=== PATIENT | female | born 1935 | race Caucasian/White ===

== ENCOUNTER 2018-09-04 11:04 | Inpatient (IN) ==
[2018-09-04] MEDS ORDERED: Isovue-370 500 ML BOTTLE IVP ONE (11:31)
--- NOTE | 2018-09-04 11:39 | Emergency Department Note ---
Disposition Clinical Impression: Supratherapeutic INR Acute renal failure Qualifiers: Acute renal failure type: unspecified Qualified Code(s): N17.9 - Acute kidney failure, unspecified Pneumonia Qualifiers: Pneumonia type: due to unspecified organism Laterality: left Lung location: lower lobe of lung Qualified Code(s): J18.1 - Lobar pneumonia, unspecified organism Disposition: Admitted As Inpatient Time of Disposition: 15:35 General Adult HPI - General Chief complaint: ED Abdominal Pain Stated complaint: ABD PAIN Time Seen by Provider: 09/04/18 11:06 Source: patient, EMS Limitations: other Nursing Notes Reviewed: Yes Vital Signs Reviewed: Yes - History of Present Illness HPI Narrative: Patient is an 82-year-old female with a history of coronary disease, chronic kidney disease stage III, diverticulosis, A. fib, diabetes presents to the ED with left upper quadrant pain. Stated she called the squad yesterday however when they arrive she denied to come with. She called again today because of the same pain. Patient states she has noted this pain for 2 days. Is in her left upper quadrant. It does not hurt at rest. Hurts with palpation. Patient has been nauseous. But she denies any vomiting, diarrhea. Pain is worse with movement and pressure. Better with rest. Has not tried any medications to help this pain. Denies any chest pain, shortness of breath, vision change, weight change. Swelling in her lower extremities. Pain Scale: 0 - Related Data Home Medications Medication Instructions Recorded Confirmed Aspirin [Adult Low Dose Aspirin EC] 81 mg PO HS 08/27/15 08/20/17 Fluticasone Propionate Nasal 50 mcg NS DAILY 08/27/15 08/20/17 [Flonase] Lisinopril [Zestril] 20 mg PO DAILY 08/27/15 08/20/17 Pravastatin Sodium [Pravachol] 40 mg PO HS 08/27/15 08/20/17 Warfarin [Coumadin] 2.5 mg PO 1800 09/17/15 08/20/17 Estrogens, Conjugated [Premarin 1 appl TP 2XW 10/11/15 08/20/17 Cream] Folic Acid 0.4 mg PO DAILY 10/11/15 08/20/17 Tramadol HCl 50 mg PO BID PRN 10/11/15 08/20/17 Metoprolol XL (24 HR) Succ [Toprol 25 mg PO HS 08/11/17 08/20/17 Xl] Previous Rx's Medication Instructions Recorded Furosemide [Lasix] 40 mg PO DAILY #60 tab 09/20/15 OxyCODONE/APAP 5/325 [Percocet 1 each PO Q6HR PRN #14 tablet 08/20/17 5/325 MG] Allergies Allergy/AdvReac Type Severity Reaction Status Date / Time No Known Allergies Allergy Verified 08/20/17 07:11 Constitutional: Reports: as per HPI Eyes: Reports: as per HPI ENT ED: Reports: as per HPI Cardiovascular: Reports: chest pain, palpitations. 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 - General Limitations: other General appearance: alert, in no apparent distress - Head Head exam: atraumatic, normocephalic - Eye Eye exam: Present: normal appearance, PERRL, EOMI - ENT ENT exam: normal exam, normal oropharynx, mucous membranes moist - Chest Chest inspection: Present: normal inspection, symmetric chest wall rise - Respiratory Respiratory exam: Present: normal lung sounds bilaterally - Cardiovascular Cardiovascular exam: Present: normal rhythm, irregular rhythm, normal heart sounds, +S1, +S2. Absent: systolic murmur, diastolic murmur - Abdominal Exam Abdominal exam: Present: soft, tenderness, hyperactive bowel sounds. Absent: distention, guarding, rebound, rigidity Abdominal tenderness: Present: LUQ - Extremities Exam Extremities exam: Present: pedal edema (1 +) - Neurological Exam Neurological exam: Present: alert, oriented X3 - Psychiatric Psychiatric exam: Present: normal affect, normal mood - Skin Skin exam: Present: warm, dry, intact, normal color Course Vital Signs Temperature 98.8 F 09/04/18 11:09 Pulse Rate 96 09/04/18 11:09 Respiratory Rate 22 09/04/18 11:09 Blood Pressure 100/46 09/04/18 11:09 O2 Sat by Pulse Oximetry 94 09/04/18 11:09 Temperature 100.0 F H 09/04/18 17:01 Pulse Rate 83 09/04/18 17:01 Respiratory Rate 16 09/04/18 17:01 Blood Pressure 144/75 09/04/18 17:01 O2 Sat by Pulse Oximetry 92 09/04/18 17:01 Oxygen Delivery Oxygen Delivery Room Air Medical Decision Making - MDM Narrative Medical decision making narrative: Left upper quadrant pain, patient was also hypotensive. Her previous visits today. Labs, EKG, troponin are ordered chest x-ray ordered as well as CT abdomen pelvis with contrast. We reviewed her past charts she has not had any scan of her abdomen. CXR 1. Left base opacity may represent infection or atelectasis. 2. Stable elevation of the right hemidiaphragm. She has supratherapeutic INR. Patient has a UTI with elevated creatinine above 5. Patient follows Dr. Smith for kidney disease. Spoke with family at bedside. They state patient had a fall [address] sc an without IV contrast. CT negative for any acute abnormality. Intial troponin was elevated. 0.05. no chest pain no st segment changes on ECG. will trend. Patient is supratherapeutic INR Dr. Ware accepts - Lab Data Result diagrams: 09/04/18 13:03 09/04/18 13:03 Lab Results 09/04/18 09/04/18 09/04/18 Range/Units 13:03 13:03 13:03 WBC 21.5 H (4.3-11.1) K/mcL RBC 4.32 (3.82-4.97) M/mcL Hgb 11.2 L (11.5-15.4) g/dL Hct 34.4 L (35.3-44.9) % MCV 79.6 L (83.0-100.0) fL MCH 25.9 L (28.0-33.3) pg MCHC 32.6 (31.6-35.5) g/dL RDW 16.0 H (11.5-14.5) % Plt Count 125 L (140-400) K/mcL MPV 12.0 (9.4-12.4) fL Immature Gran % 1.3 (0-4) % Seg Neutrophils % 90.5 % Lymphocytes % 3.2 % Monocytes % 4.9 % Eosinophils % 0.0 % Basophils % 0.1 % Neutrophils # 19.5 H (1.6-8.9) K/mcL Lymphocytes # 0.7 (0.6-4.6) K/mcL Monocytes # 1.1 (0.0-1.3) K/mcL Eosinophils # 0.0 (0.0-0.6) K/mcL Basophils # 0.0 (0.0-0.2) K/mcL PT 56.1 H* (9.4-12.1) Seconds INR 5.0 H* APTT 44.3 H (26.0-36.0) Seconds Sodium 127 L (136-145) mEq/L Potassium 3.5 (3.5-5.1) mEq/L Chloride 90 L (98-107) mEq/L Carbon Dioxide 23 (23-29) mEq/L BUN 66 H (8-23) mg/dL Creatinine 5.01 H (0.60-1.20) mg/dL Est GFR ( Amer) 10 L (> 60) Est GFR (Non-Af Amer) 8 L (> 60) BUN/Creatinine Ratio 13 (6-26) Glucose 182 H (70-105) mg/dL Calculated Osmolality 288 (280-300) Calcium 8.3 L (8.6-10.3) mg/dL Total Bilirubin 0.4 (0.3-1.0) mg/dL Direct Bilirubin 0.1 (0.0-0.2) mg/dL Indirect Bilirubin 0.3 (0.0-1.2) mg/dL AST 20 (13-39) Units/L ALT 15 (7-52) Units/L Alkaline Phosphatase 102 (34-104) Units/L Troponin I 0.05 H* (< 0.04) ng/mL Serum Total Protein 5.8 L (6.4-8.9) g/dL Albumin 2.6 L (3.5-5.7) g/dL Globulin 3.2 (2.4-3.5) g/dL Albumin/Globulin Ratio 0.8 L (1.1-2.2)
[2018-09-04 14:06] LABS: Basophils % 0.1 %; Hematocrit 34.4 % (35.3-44.9); Hemoglobin 11.2 g/dL (11.5-15.4); Immature Granulocytes % 1.3 % (0-4); Lymphocytes # 0.7 K/mcL (0.6-4.6); Lymphocytes % 3.2 %; Mean Corpuscular HGB Conc 32.6 g/dL (31.6-35.5); Mean Corpuscular Hemoglobin 25.9 pg (28.0-33.3); Mean Corpuscular Volume 79.6 fL (83.0-100.0); Monocytes # 1.1 K/mcL (0.0-1.3); Monocytes % 4.9 %; Neutrophils # 19.5 K/mcL (1.6-8.9); Platelet Count 125 K/mcL (140-400); Red Blood Count 4.32 M/mcL (3.82-4.97); Segmented Neutrophils % 90.5 %
[2018-09-04 14:15] LABS: Activated Partial Thrombo Time 44.3 Seconds (26.0-36.0)
[2018-09-04 14:27] LABS: Albumin 2.6 g/dL (3.5-5.7); Albumin/Globulin Ratio 0.8 (1.1-2.2); Bilirubin,Direct 0.1 mg/dL (0.0-0.2); Bilirubin,Indirect 0.3 mg/dL (0.0-1.2); Bilirubin,Total 0.4 mg/dL (0.3-1.0); Calcium 8.3 mg/dL (8.6-10.3); Globulin 3.2 g/dL (2.4-3.5); Potassium 3.5 mEq/L (3.5-5.1); Total Protein 5.8 g/dL (6.4-8.9)
[2018-09-04 14:35] LABS: Prothrombin Time 56.1 Seconds (9.4-12.1)
[2018-09-04 14:41] LABS: Troponin I 0.05 ng/mL (< 0.04)
--- NOTE | 2018-09-04 15:13 | Emergency Department Note ---
Disposition Clinical Impression: Supratherapeutic INR Acute renal failure Qualifiers: Acute renal failure type: unspecified Qualified Code(s): N17.9 - Acute kidney failure, unspecified Disposition: Admitted As Inpatient Forms: ED Satisfaction Letter, Work/School Release General Adult HPI - General Chief complaint: ED Abdominal Pain Stated complaint: ABD PAIN Time Seen by Provider: 09/04/18 11:06 Source: patient, EMS Limitations: other - History of Present Illness Pain Scale: 0 - Related Data Home Medications Medication Instructions Recorded Confirmed Aspirin [Adult Low Dose Aspirin EC] 81 mg PO HS 08/27/15 08/20/17 Fluticasone Propionate Nasal 50 mcg NS DAILY 08/27/15 08/20/17 [Flonase] Lisinopril [Zestril] 20 mg PO DAILY 08/27/15 08/20/17 Pravastatin Sodium [Pravachol] 40 mg PO HS 08/27/15 08/20/17 Warfarin [Coumadin] 2.5 mg PO 1800 09/17/15 08/20/17 Estrogens, Conjugated [Premarin 1 appl TP 2XW 10/11/15 08/20/17 Cream] Folic Acid 0.4 mg PO DAILY 10/11/15 08/20/17 Tramadol HCl 50 mg PO BID PRN 10/11/15 08/20/17 Metoprolol XL (24 HR) Succ [Toprol 25 mg PO HS 08/11/17 08/20/17 Xl] Previous Rx's Medication Instructions Recorded Furosemide [Lasix] 40 mg PO DAILY #60 tab 09/20/15 OxyCODONE/APAP 5/325 [Percocet 1 each PO Q6HR PRN #14 tablet 08/20/17 5/325 MG] Allergies Allergy/AdvReac Type Severity Reaction Status Date / Time No Known Allergies Allergy Verified 08/20/17 07:11 Constitutional: Reports: as per HPI Eyes: Reports: as per HPI ENT ED: Reports: as per HPI Cardiovascular: Reports: chest pain, palpitations. 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 - Social History Smoking Status: Never smoker Smokeless Tobacco Status: No Alcohol use: Reports: none Drug use: Reports: none Physical Exam - General Limitations: other General appearance: alert, in no apparent distress Course Vital Signs Temperature 98.8 F 09/04/18 11:09 Pulse Rate 96 09/04/18 11:09 Respiratory Rate 22 09/04/18 11:09 Blood Pressure 100/46 09/04/18 11:09 O2 Sat by Pulse Oximetry 94 09/04/18 11:09 Temperature 98.8 F 09/04/18 11:09 Pulse Rate 90 09/04/18 12:55 Respiratory Rate 20 09/04/18 12:55 Blood Pressure 109/54 09/04/18 12:55 O2 Sat by Pulse Oximetry 95 09/04/18 12:55 Oxygen Delivery Oxygen Delivery Room Air Medical Decision Making - Lab Data Result diagrams: 09/04/18 13:03 09/04/18 13:03 Lab Results 09/04/18 09/04/18 09/04/18 Range/Units 13:03 13:03 13:03 WBC 21.5 H (4.3-11.1) K/mcL RBC 4.32 (3.82-4.97) M/mcL Hgb 11.2 L (11.5-15.4) g/dL Hct 34.4 L (35.3-44.9) % MCV 79.6 L (83.0-100.0) fL MCH 25.9 L (28.0-33.3) pg MCHC 32.6 (31.6-35.5) g/dL RDW 16.0 H (11.5-14.5) % Plt Count 125 L (140-400) K/mcL MPV 12.0 (9.4-12.4) fL Immature Gran % 1.3 (0-4) % Seg Neutrophils % 90.5 % Lymphocytes % 3.2 % Monocytes % 4.9 % Eosinophils % 0.0 % Basophils % 0.1 % Neutrophils # 19.5 H (1.6-8.9) K/mcL Lymphocytes # 0.7 (0.6-4.6) K/mcL Monocytes # 1.1 (0.0-1.3) K/mcL Eosinophils # 0.0 (0.0-0.6) K/mcL Basophils # 0.0 (0.0-0.2) K/mcL PT 56.1 H* (9.4-12.1) Seconds INR 5.0 H* APTT 44.3 H (26.0-36.0) Seconds Sodium 127 L (136-145) mEq/L Potassium 3.5 (3.5-5.1) mEq/L Chloride 90 L (98-107) mEq/L Carbon Dioxide 23 (23-29) mEq/L BUN 66 H (8-23) mg/dL Creatinine 5.01 H (0.60-1.20) mg/dL Est GFR ( Amer) 10 L (> 60) Est GFR (Non-Af Amer) 8 L (> 60) BUN/Creatinine Ratio 13 (6-26) Glucose 182 H (70-105) mg/dL Calculated Osmolality 288 (280-300) Calcium 8.3 L (8.6-10.3) mg/dL Total Bilirubin 0.4 (0.3-1.0) mg/dL Direct Bilirubin 0.1 (0.0-0.2) mg/dL Indirect Bilirubin 0.3 (0.0-1.2) mg/dL AST 20 (13-39) Units/L ALT 15 (7-52) Units/L Alkaline Phosphatase 102 (34-104) Units/L Troponin I 0.05 H* (< 0.04) ng/mL Serum Total Protein 5.8 L (6.4-8.9) g/dL Albumin 2.6 L (3.5-5.7) g/dL Globulin 3.2 (2.4-3.5) g/dL Albumin/Globulin Ratio 0.8 L (1.1-2.2) Attestation Statement - Attestation Attestation: I examined this patient and my medical decision-making was reviewed with the Resident Physician. I agree with the documented findings, disposition and treatment plan as described except to the extent set forth below. 82 year old female presets to the ED with complaints of left sided lateral rib pain and upper LUQ pain that started over the past few days. Patient had a fall two days ago and and otherwise did not hit her head or neck. Jordyn is on coumadin and it apperars that she is supratherapetic at 5.0 INR and this matches her new renal failure of 5.0 CRN. Jordyn has a CT that is pending but she will be admitted to medicine unless there is consdieration for surgical emergemcy intervention i.e. a spleenic lacaeration or other traumatc pathology which will then require transfer
[2018-09-04] MEDS: Piperacillin/Tazobactam 3.375 GM in 0.9 % Sodium Chloride Mini Bag 100 ML IVPB SCH (16:36)
[2018-09-04] MEDS ORDERED: Naloxone 0.4 MG/ML INJ IVP PRN (18:49)
[2018-09-04] MEDS ORDERED: *HR* OxyCODONE/APAP 5/325 TABLET PO PRN (18:53)
[2018-09-04] MEDS: Aspirin Enteric Coated 81 MG Tablet PO SCH (20:07)
[2018-09-04] MEDS: Metoprolol XL (24 HR) Succ 25 MG TAB.ER.24H PO SCH (20:07)
--- NOTE | 2018-09-04 20:18 | Internal Med History&Physical ---
Date of Encounter: 09/04/18 Time of Encounter: 19:00 Internal Medicine - H&P: HPI Chief complaint: RIGHT UPPER QUADRANT ABDOMINAL PAIN Admitted From: Home Plans for Post Hospital Care: Home History of present illness: The patient is an 82-year-old woman. She has had multiple medical problemsmentioned below. She has had left upper quadrant abdominal pain for a few days. Associated with mild cough but not wheezing. Interestingly, she fell out of bed about 2 days ago. She tells me that the pain in the left upper q uadrant was there before the fall. The pain is very mild, when she is not moving around. It is worse with repositioning of her body and deep breathing. That area is very painful to palpation. Denies any nausea and vomiting. She has normal bowel movements. PAST MEDICAL HX: She has had coronary artery disease and atrial fibrillation. She is treated for congestive heart failure. 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 Her echocardiogram from May 2018 showed the ejection fraction of 45% together with mild concentric left ventricular hypertrophy. It also showed segmental left ventricular wall motion abnormality. She has had type 2 diabetes mellitus and hypertension/hyperlipidemia with stage III chronic kidney disease (GFR of 43 was noted on 07/30/18). She may have some liver diseaseas per her history. PAST FAMILY HX: There is somebody in her close family having breast cancer. Otherwise, she does not remember any other medical problems for her family members. PAST SOCIAL HX: She denies tobacco, alcohol and illicit drug use. REVIEW OF SYSTEMS: All 14 organ systems were reviewed by me with the patient. Positive and pertinent negative findings are listed above. The rest of organ systems is negative. PHYSICAL EXAM: Skin: Free of rash and discoloration. Eyes: Sclera is white. There is no discharge from eyes. ENMT: Oral/pharyngeal mucosa is normal in appearance. There is no discharge from nose or ears. Respiratory: Normal breath sounds with no crackles and wheezes bilaterally. CV: Heart is regular with no gallop or murmur. GI: Abdomen is flat and soft with no palpable mass or visceromegaly. There is tenderness at palpation of the area located below her left ribsanteriorly. : There is no tenderness in patient's flanks bilaterally. Neuro exam: He has good strength in upper and lower extremities. He has normal eye movements. Psychiatric: He has normal affect. His thought process is appropriate to the situation. ADDITIONAL DATA: CBC shows hemoglobin of 11.2 with a WBC of 21.5 thousand and platelet count of 125,000. Sodium is 127 (138 on 07/30/18) with potassium of 3.5. Creatinine is 5.01 with GFR of 8. Those numbers were 1.19 and 43 on 07/30/18. Liver function tests are normal. Chest x-ray shows left base opacitymay represent infection or atelectasis. It shows stable elevation of the right hemidiaphragm. CT of abdomen and pelvis (without IV contrast; with by mouth contrast) does not show any significant abnormalities. A/P: Left upper quadrant abdominal pain. It could represent pleuritic pain in the proximity of her left lower lobe pneumonia. The patient will be treated with IV Zosyn. She is not hypoxic. She does not require supplemental oxygen. Acute kidney injury on the top of CKD stage III. I will give her gentle hydration. I will repeat her BMP in the morning. Hyponatremia. Likely secondary to above mentioned acute kidney injury. I feel, at that it would improve with normal saline IV drip. Her other problems are mentioned above. They seem to be stable/controlled. Past Med Surg Social Fam HX - Past Medical History Medical history: atrial fibrillation, CHF, coronary artery disease, diabetes, GERD, hyperlipidemia, hypertension, liver disease, myocardial infarction Additional medical history: osteoarthritis of knee and hand, colonic polyps, steopenia, chronic kidney disease stagelll, diverticulosis, shingles-12/2007- right lower extremity, hx of shingles, nonischemic CMP, O2 @ 2L Psychiatric history: no psych history - Past Surgical History Surgical History: angioplasty/stent, cholecystectomy Additional surgical history: tubal ligation, upper GI endo and colonoscopy- 10/2009, mammography-09/2010, DEXA-2010, EMB-08/11/12, cardiac cath, - Social History Smoking Status: Former smoker Smokeless Tobacco Status: No Alcohol use: none Drug use: none - Family History Mother Living Status: Hx Family Cardiac Disorders: No Hx Family Respiratory Disorders: No Hx Family Cancer: Yes Father Adopted: No Family Member Ethnicity: Non- Living Status: Sister Family Member Ethnicity: Non- Living Status: Still Living Hx Family Cardiac Disorders: No Hx Family Respiratory Disorders: No Hx Family Cancer: Yes (breast) Internal Medicine - H&P: Meds Aspirin [Adult Low Dose Aspirin EC] 81 mg PO HS 08/27/15 [History] Fluticasone Propionate Nasal [Flonase] 50 mcg NS DAILY 08/27/15 [History] Lisinopril [Zestril] 20 mg PO DAILY 08/27/15 [History] Pravastatin Sodium [Pravachol] 40 mg PO HS 08/27/15 [History] Warfarin [Coumadin] 2.5 mg PO 1800 09/17/15 [History] Furosemide [Lasix] 40 mg PO DAILY #60 tab 09/20/15 [Rx] Estrogens, Conjugated [Premarin Cream] 1 appl TP 2XW 10/11/15 [History] Folic Acid 0.4 mg PO DAILY 10/11/15 [History] Tramadol HCl 50 mg PO BID PRN 10/11/15 [History] Metoprolol XL (24 HR) Succ [Toprol Xl] 25 mg PO HS 08/11/17 [History] OxyCODONE/APAP 5/325 [Percocet 5/325 MG] 1 each PO Q6HR PRN #14 tablet 08/20/17 [Rx] Allergy/AdvReac Type Severity Reaction Status Date / Time No Known Allergies Allergy Verified 08/20/17 07:11 - Constitutional Vitals: Temp Pulse Resp BP Pulse Ox 98.2 F 102 15 109/68 91 09/04/18 18:59 09/04/18 18:59 09/04/18 18:59 09/04/18 18:59 09/04/18 18:59 General appearance: Present: A&O X 3, no acute distress, answers questions appropriately Exam: xx Internal Med - H&P Results - Labs CBC & Chem 7: 09/05/18 03:09 09/05/18 03:09 Labs: Short CBC 09/04/18 Range/Units 13:03 WBC 21.5 H (4.3-11.1) K/mcL Hgb 11.2 L (11.5-15.4) g/dL Hct 34.4 L (35.3-44.9) % Plt Count 125 L (140-400) K/mcL Neutrophils # 19.5 H (1.6-8.9) K/mcL BMP 09/04/18 13:03 Sodium 127 L Potassium 3.5 Chloride 90 L Carbon Dioxide 23 BUN 66 H Creatinine 5.01 H Glucose 182 H Calcium 8.3 L Cardiac Enzymes 09/04/18 09/04/18 Range/Units 13:03 18:17 Troponin I 0.05 H* 0.06 H* (< 0.04) ng/mL Liver Function 09/04/18 Range/Units 13:03 Total Bilirubin 0.4 (0.3-1.0) mg/dL Direct Bilirubin 0.1 (0.0-0.2) mg/dL AST 20 (13-39) Units/L ALT 15 (7-52) Units/L Alkaline Phosphatase 102 (34-104) Units/L Albumin 2.6 L (3.5-5.7) g/dL - Impressions ITS Impressions Chest X-Ray 09/04/18 11:27 IMPRESSION: 1. Left base opacity may represent infection or atelectasis. 2. Stable elevation of the right hemidiaphragm. D/ / 09/04/2018 11:58:14 Nany Thomas MD / larisa Interpreting Provider: Nany Thomas MD Abdomen/Pelvis CT 09/04/18 11:31 IMPRESSION: 1. No acute intra-abdominal abnormality to account for the patient's symptoms. 2. Moderate diverticulosis. 3. Severe atherosclerosis. 4. Status post cholecystectomy. 5. Probable benign cyst in the right adnexa measuring up to 3.7 cm. Given the patient's age, pelvic ultrasound is recommended on a nonemergent basis. 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 insulin use: without termite control service representative use Diabetes mellitus complication status: with kidney complications Diabetes mellitus complication detail: with chronic kidney disease Chronic kidney disease stage: stage 3 (moderate) Qualified Code(s): E11.22 - Type 2 diabetes mellitus with diabetic chronic kidney disease; N18.3 - Chronic kidney disease, stage 3 (m oderate) (4) Hyponatremia Current Visit: Yes Status: Acute - Time Spent With Patient Total time spent is greater than 50% in coordination of care (as documented) at patient's floor/unit and/or counseling patient: - VTE Reasons for not Prescribing Prophylaxis: Treatment not Indicated - Low risk for VTE Deep Vein Thrombosis/Pulmonary Embolism Present on Admission: No
[2018-09-04 21:12] LABS: Bilirubin,Urine Negative (Negative); Blood,Urine Small (Negative); Clarity,Urine Turbid (Clear); Color,Urine Yellow (Yellow); Glucose,Urine (UA) Normal (Normal); Ketones,Urine Negative (Negative); Leukocyte Esterase,Urine Large (Negative); Nitrite,Urine Negative (Negative); Protein,Urine >=300 mg/dL (Neg-Trace); Specific Gravity,Urine 1.011 (1.010-1.025); Urobilinogen,Urine Normal (Normal)
[2018-09-04 21:14] LABS: Bacteria,Urine Few per hpf (None-Few); Hyaline Casts,Urine None Seen per lpf (None-Few); RBC,Urine 15-30 per hpf (0-3); Squamous Epithelial Cell,Urine Many per lpf (None-Few); WBC,Urine TNTC per hpf (0-3)
[2018-09-04] MEDS: 0.9 % Sodium Chloride 1,000 ML IVC SCH (21:55)
[2018-09-05] MEDS: Piperacillin/Tazobactam 3.375 GM in 0.9 % Sodium Chloride Mini Bag 100 ML IVPB SCH ×2 (03:04→16:08)
[2018-09-05 03:58] LABS: Basophils % 0.1 %; Hematocrit 34.8 % (35.3-44.9); Hemoglobin 11.5 g/dL (11.5-15.4); Lymphocytes # 0.6 K/mcL (0.6-4.6); Lymphocytes % 3.3 %; Mean Corpuscular Hemoglobin 25.8 pg (28.0-33.3); Mean Corpuscular Volume 78.2 fL (83.0-100.0); Mean Platelet Volume 12.1 fL (9.4-12.4); Monocytes # 0.8 K/mcL (0.0-1.3); Monocytes % 4.1 %; Neutrophils # 16.6 K/mcL (1.6-8.9); Platelet Count 112 K/mcL (140-400); Red Blood Count 4.45 M/mcL (3.82-4.97); Segmented Neutrophils % 91.5 %
[2018-09-05 04:19] LABS: Magnesium 1.5 mg/dL (1.6-2.6); Potassium 3.5 mEq/L (3.5-5.1)
[2018-09-05] MEDS ORDERED: Furosemide 20 MG TABLET PO SCH (09:00)
[2018-09-05] MEDS ORDERED: traMADol 50 MG TABLET PO PRN (11:38)
[2018-09-05 13:16] LABS: INR 4.7; Prothrombin Time 53.4 Seconds (9.4-12.1)
--- NOTE | 2018-09-05 13:26 | Internal Med Progress Note ---
<Mayi Grier P - Last Filed: 09/05/18 15:39> Hospitalist Progress Note - Encounter Date of Encounter: 09/05/18 Time of Encounter: 09:45 - Subjective Interval History: The patient is an 82-year-old woman with PMH of type 2 diabetes mellitus and hypertension/hyperlipidemia with stage III chronic kidney disease (GFR of 43 was noted on 07/30/18.She has had left upper quadrant abdominal pain for a few days. Associated with mild cough but not wheezing. Interestingly, she fell out of bed about 2 days ago. She tells me that the pain in the left upper quadrant was there before the fall.Her echocardiogram from May 2018 showed the ejection fraction of 45% together with mild concentric left ventricular hypertrophy. It also showed segmental left ventricular wall motion abnormality. CXR: Left base opacity may represent infection or atelectasis. CT abdomen & pelvis:No acute intra-abdominal abnormality to account for the patient's symptoms.,Moderate diverticulosis,Severe atherosclerosis. ,Status post cholecystectomy. Today during my visit the patient was lying comfortably on the bed, her vitals were stable. She complained about mild to moderate pain abdomen in left upper quadrant and left lower chest, she was not in acute distress, answering question appropriately. - Exam Vitals: Temp Pulse Resp BP Pulse Ox 98.6 F 93 16 115/67 93 09/05/18 11:07 09/05/18 11:07 09/05/18 11:07 09/05/18 11:07 09/05/18 11:07 Exam: Gen: Alert, awake , Oriented to time,place and person Chest: Diminished BS b/l, No crackles, No rales, No wheezing Heart: S1S2+ RRR No Murmurs Abd: Soft, NT, BS + No organomegaly Ext: No edema, pulses are palpable, no tenderness Neuro: No focal neuro deficits Psych: Normal mood Skin: No rash - Assessment and Plan (1) Pneumonia Current Visit: Yes Status: Acute Assessment and Plan: The patient presented with left upper quadrant pain with cough and mild shortness of breath, she is a past smoker Xray Chest: Left base opacity may represent infection or atelectasis. She is on Zosyn (2) Atrial fibrillation Current Visit: No Status: Acute Assessment and Plan: She is a patient with chronic A. fib, she was on oral Coumadin We have put hold on warfarin due to elevated INR and PT (3) Acute kidney injury superimposed on CKD Current Visit: Yes Status: Acute Assessment and Plan: The patient has elevated BUN creatinine for last few years Today the creatinine level is 4.33 and yesterday it was 5.01 It might be presipitated by dehydration or infection We have put hold on nephrotoxic drugs and consulted nephrology. (4) Diabetes type 2, controlled Current Visit: No Status: Chronic Assessment and Plan: She is a chronic patient of type 2 diabetes Recent glucose 139 Her A1c 6.7; done in March 2018 New A1c has been ordered (5) Hypertension Current Visit: No Status: Acute Assessment and Plan: The patient is chronic patient of hypertension she is on metoprolol 25 mg daily His vital; blood pressure 115/67 (6) Supratherapeutic INR Current Visit: Yes Status: Acute Assessment and Plan: Patient was on warfarin for chronic A. fib The patient has elevated PT and INR; 56.1 and 5.0 respectively yesterday, today 53.4 and 4.7 respiratory We have put hold on warfarin and we will monitor tomorrow as well - Time Spent with Patient Total time spent is greater than 50% in coordination of care (as documented) at patient's floor/unit and/or counseling patient: Internal Medicine: Result - Labs CBC & Chem 7: 09/05/18 03:09 09/05/18 03:09 Labs: Short CBC 09/04/18 09/05/18 Range/Units 13:03 03:09 WBC 21.5 H 18.2 H (4.3-11.1) K/mcL Hgb 11.2 L 11.5 (11.5-15.4) g/dL Hct 34.4 L 34.8 L (35.3-44.9) % Plt Count 125 L 112 L (140-400) K/mcL Neutrophils # 19.5 H 16.6 H (1.6-8.9) K/mcL BMP 09/04/18 09/05/18 13:03 03:09 Sodium 127 L 127 L Potassium 3.5 3.5 Chloride 90 L 90 L Carbon Dioxide 23 24 BUN 66 H 69 H Creatinine 5.01 H 4.33 H Glucose 182 H 139 H Calcium 8.3 L 8.0 L Cardiac Enzymes 09/04/18 09/04/18 Range/Units 13:03 18:17 Troponin I 0.05 H* 0.06 H* (< 0.04) ng/mL Liver Function 09/04/18 Range/Units 13:03 Total Bilirubin 0.4 (0.3-1.0) mg/dL Direct Bilirubin 0.1 (0.0-0.2) mg/dL AST 20 (13-39) Units/L ALT 15 (7-52) Units/L Alkaline Phosphatase 102 (34-104) Units/L Albumin 2.6 L (3.5-5.7) g/dL Urine 09/04/18 Range/Units 20:50 Urine Color Yellow (Yellow) Urine Clarity Turbid A (Clear) Urine pH 6.0 (5.0-8.0) pH Units Ur Specific [place] 1.011 (1.010-1.025) Urine Protein >=300 H (Neg-Trace) mg/dL Urine Glucose (UA) Normal (Normal) mg/dL - ABG Interpretation ABG results: PT/INR, D-dimer PT 53.4 Seconds (9.4-12.1) H* 09/05/18 11:49 - Impressions Impressions Chest X-Ray 09/04/18 11:27 IMPRESSION: 1. Left base opacity may represent infection or atelectasis. 2. Stable elevation of the right hemidiaphragm. D/ / 09/04/2018 11:58:14 Nany Thomas MD / larisa Interpreting Provider: Nany Thomas MD Abdomen/Pelvis CT 09/04/18 11:31 IMPRESSION: 1. No acute intra-abdominal abnormality to account for the patient's symptoms. 2. Moderate diverticulosis. 3. Severe atherosclerosis. 4. Status post cholecystectomy. 5. Probable benign cyst in the right adnexa measuring up to 3.7 cm. Given the patient's age, pelvic ultrasound is recommended on a nonemergent basis. D/ / 09/04/2018 15:16:45 Nany Thomas MD / larisa Interpreting Provider: Nany Thomas MD - VTE Reasons for not Prescribing Prophylaxis: Treatment not Indicated - Low risk for VTE Deep Vein Thrombosis/Pulmonary Embolism Present on Admission: No Consult Discharge Plan - Plan Referrals: Abebe Chirinos MD [Primary Care Provider] - <Jyoti Welsh - Last Filed: 09/05/18 16:04> Hospitalist Progress Note - Encounter Date of Encounter: 09/05/18 - Exam Vitals: Temp Pulse Resp BP Pulse Ox 98.6 F 93 16 115/67 93 09/05/18 11:07 09/05/18 11:07 09/05/18 11:07 09/05/18 11:07 09/05/18 11:07 - Assessment and Plan (1) Acute renal failure Current Visit: Yes Status: Acute (2) Pneumonia Current Visit: Yes Status: Acute (3) Type 2 diabetes mellitus Current Visit: Yes Status: Acute (4) Hyponatremia Current Visit: Yes Status: Acute - Time Spent with Patient Total time spent is greater than 50% in coordination of care (as documented) at patient's floor/unit and/or counseling patient: Internal Medicine: Result - Labs CBC & Chem 7: 09/05/18 03:09 09/05/18 03:09 Labs: Short CBC 09/05/18 Range/Units 03:09 WBC 18.2 H (4.3-11.1) K/mcL Hgb 11.5 (11.5-15.4) g/dL Hct 34.8 L (35.3-44.9) % Plt Count 112 L (140-400) K/mcL Neutrophils # 16.6 H (1.6-8.9) K/mcL BMP 09/05/18 03:09 Sodium 127 L Potassium 3.5 Chloride 90 L Carbon Dioxide 24 BUN 69 H Creatinine 4.33 H Glucose 139 H Calcium 8.0 L Cardiac Enzymes 09/04/18 Range/Units 18:17 Troponin I 0.06 H* (< 0.04) ng/mL Urine 09/04/18 Range/Units 20:50 Urine Color Yellow (Yellow) Urine Clarity Turbid A (Clear) Urine pH 6.0 (5.0-8.0) pH Units Ur Specific [place] 1.011 (1.010-1.025) Urine Protein >=300 H (Neg-Trace) mg/dL Urine Glucose (UA) Normal (Normal) mg/dL - ABG Interpretation ABG results: PT/INR, D-dimer PT 53.4 Seconds (9.4-12.1) H* 09/05/18 11:49 - Attending Attestation I examined this patient and my medical decision-making was reviewed with the Res ident Physician Dr. Grier. I agree with the documented findings, disposition and treatment plan as described except to the extent set forth below. Ms. Marques is a 82 y/o F with known past medical history of paroxysmal a fib, CK D stage III, hypertension, hyperlipidemia, systolic CHF, diabetes type II, patient who presented to ER with cough and shortness of breath. She also complained about left lower chest wall as was epigastric pain more like a pleurisy pain. Her chest x-ray showed left lower lobe pneumonia. Patient was admitted in the hospital and started her on empirical antibiotic levofloxacin symptoms started improving now. She is still f/o Left lower chest wall pain. Gen: A, A, O x3 Chest: Diminished BS b/l, no crackles, no rales, mild wheezing Heart: S1S2+ RRR No murmurs ap 1. Acute LLL PNA- mostly bacterial cont empirical abx Zosyn cont Duoneb 2. J CARLOS with CKD-3 Due to dehydration cont IV hydration Nephro consulted 3. Chronic systolic CHF not in exacerbation held diuretics due to dehydration resumed all other home medications <Mayi Grier P - Last Filed: 09/05/18 15:39> (2) Atrial fibrillation Qualifiers: Atrial fibrillation type: chronic Qualified Code(s): I48.2 - Chronic atrial fibrillation (5) Hypertension Qualifiers: Hypertension type: essential hypertension Qualified Code(s): I10 - Essential (primary) hypertension <Jyoti Welsh - Last Filed: 09/05/18 16:04> (1) Acute renal failure Qualifiers: Acute renal failure type: unspecified Qualified Code(s): N17.9 - Acute kidney failure, unspecified (2) Pneumonia Qualifiers: Pneumonia type: due to unspecified organism Laterality: left Lung location: lower lobe of lung Qualified Code(s): J18.1 - Lobar pneumonia, unspecified organism (3) Type 2 diabetes mellitus Qualifiers: Diabetes mellitus intermediate frame tender insulin use: without intermediate frame tender use Diabetes mellitus complication status: with kidney complications Diabetes mellitus complication detail: with chronic kidney disease Chronic kidney disease stage: stage 3 (moderate) Qualified Code(s): E11.22 - Type 2 diabetes mellitus with diabetic chronic kidney disease; N18.3 - Chronic kidney disease, stage 3 (moderate)
[2018-09-05] MEDS: Estrogens, Conjugated CREAM 30 GM TUBE VG SCH (13:35)
[2018-09-05] MEDS: 0.9 % Sodium Chloride 1,000 ML IVC SCH (13:39)
--- NOTE | 2018-09-05 13:56 | Nephrology Consult Note ---
Addendum entered and electronically signed by James Grimm DO 09/06/18 07:40: I have personally performed a face to face evaluation on this patient. I have reviewed and agree with the care plan. History and Exam by me shows: 82 y/o WF with a pmh of CKD (followed by Dr. Smith in the clinic) who presented with J CAROLS and hyponatremia. Work up ordered. 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 She has required E/M and MDM and is high risk and will require admission and daily assessment of her renal function, plus I recommend a slow/safe reate of correction for the hyponatremia of about 6-8mEq in the 1st 24hr. Thank you for consulting the [facility]. Original Note: Date of Encounter: 09/05/18 Time of Encounter: 13:56 Assessment and Plan (1) Acute kidney injury superimposed on CKD Current Visit: Yes Status: Acute Baseline GFR appears to be 35-40. Avoid nephrotoxins and renal dose all medications. Strict I&O. GFR today is 10, no signs of uremia or confusion. Electrolytes stable. No indication for [employer] STOCKYARD today, this could change due to clinical picture. Urine output for the past 24 hours has been 400 mL, 600 mL already for today. Retroperitoneal ultrasound ordered, serum and urine studies ordered. (2) Hyponatremia Current Visit: Yes Status: Acute Sodium is 127, stable we will continue to monitor. Hyponatremia workup ordered. (3) Supratherapeutic INR Current Visit: Yes Status: Acute PT 53.4 and INR 4.7. Per primary. (4) Type 2 diabetes mellitus Current Visit: Yes Status: Acute Per primary. Qualifiers: Diabetes mellitus shelter insulin use: without remote computer terminal operator use Diabetes mellitus complication status: with kidney complications Diabetes mellitus complication detail: with chronic kidney disease Chronic kidney disease stage: stage 3 (moderate) Qualified Code(s): E11.22 - Type 2 diabetes mellitus with diabetic chronic kidney disease; N18.3 - Chronic kidney disease, stage 3 (moderate) History of Present Illness - Reason for Consult Consult date: 09/05/18 Chronic Kidney Disease Requesting physician: Mayi Grier - Chief Complaint left upper quad pain - History of Present Illness Ms. Marques is an 82 year old female who resented to the ED with abdominal pain and status post fall from bed. PMH:atrial fibrillation, CHF, coronary artery di sease, diabetes, GERD, hyperlipidemia, hypertension, and CKD 4. Baseline GFR appears to be 35-40. She does see Dr. Smith in the office. CT of the abdomen and pelvis without contrast was obtained on 09/04/18. GFR is 10 today worsened from her baseline. Avoid nephrotoxins and renal dose all medications. Strict I&O. Patient does report nausea and emesis at home approximately 3 days prior to arrival to the ED. She also reports that she does not drink much water at home. She denies diarrhea. Denies chest pain or shortness of breath at this time. J CARLOS workup has been ordered including a retroperitoneal ultrasound. Past Med Surg Social Fam HX - Past Medical History Medical history: atrial fibrillation, CHF, coronary artery disease, diabetes, GERD, hyperlipidemia, hypertension, liver disease, myocardial infarction Additional medical history: osteoarthritis of knee and hand, colonic polyps, steopenia, chronic kidney disease stagelll, diverticulosis, shingles-12/2007- right lower extremity, hx of shingles, nonischemic CMP, O2 @ 2L Psychiatric history: no psych history - Past Surgical History Surgical History: angioplasty/stent, cholecystectomy Additional surgical history: tubal ligation, upper GI endo and colonoscopy- 10/2009, mammography-09/2010, DEXA-2010, EMB-08/11/12, cardiac cath, - Social History Smoking Status: Former smoker Smokeless Tobacco Status: No Alcohol use: none Drug use: none - Family History Father Adopted: No Family Member Ethnicity: Non- Living Status: Mother Living Status: Hx Family Cardiac Disorders: No Hx Family Respiratory Disorders: No Hx Family Cancer: Yes Sister Family Member Ethnicity: Non- Living Status: Still Living Hx Family Cardiac Disorders: No Hx Family Respiratory Disorders: No Hx Family Cancer: Yes (breast) Medications and Allergies RX: Fluticasone Propionate Nasal [Flonase] 1 spray NS DAILY 08/27/15 [History] RX: Pravastatin Sodium [Pravachol] 40 mg PO DAILY 08/27/15 [History] RX: Warfarin [Coumadin] 2.5 mg PO [id number] 09/17/15 [History] RX: Furosemide [Lasix] 40 mg PO DAILY #60 tab 09/20/15 [Rx] RX: Folic Acid 0.4 mg PO DAILY 10/11/15 [History] Aspirin Enteric Coated [Aspirin EC] 81 mg PO DAILY 09/05/18 [History] Cholecalciferol (D-3) [Vitamin D] 1,000 unit PO DAILY 09/05/18 [History] Losartan Potassium 100 mg PO DAILY 09/05/18 [History] RX: Estrogens, Conjugated [Premarin Cream] 1 appl VG AD 09/05/18 [History] RX: Omeprazole [PriLOSEC] 40 mg PO DAILY 09/05/18 [History] Tramadol HCl [Ultram] 50 mg PO DAILY PRN 09/05/18 [History] Warfarin Sodium 5 mg PO ESTEBAN 09/05/18 [History] Allergy/AdvReac Type Severity Reaction Status Date / Time No Known Allergies Allergy Verified 08/20/17 07:11 Review of Systems All Systems review (narrative): The remainder of the systems are negative. Constitutional: fatigue, no chills, no fever(s) Cardiovascular: no chest pain, no dyspnea, no dyspnea on exertion Respiratory: no cough Gastrointestinal: nausea, vomiting, no change in bowel habits, no diarrhea Genitourinary Female: no hematuria, no urinary frequency, no urinary hesitancy, no urinary incontinence, no urinary urgency Exam - Vital Signs Vital signs: Initial Vital Signs Temp Pulse Resp BP Pulse Ox 98.8 F 96 22 100/46 94 09/04/18 11:09 09/04/18 11:09 09/04/18 11:09 09/04/18 11:09 09/04/18 11:09 Vital Signs - Last 8 Hours Temp Pulse Resp BP Pulse Ox 09/05/18 11:07 98.6 F 93 16 115/67 93 09/05/18 07:21 99.4 F 107 16 107/49 92 Intake and Output 09/04/18 09/05/18 09/05/18 23:59 07:59 15:59 Intake Total 100 / 100 1000 / 1000 Output Total 400 / 400 600 / 600 Balance -300 / -300 -600 / -600 1000 / 1000 Intake: IV Fluids 100 / 100 1000 / 1000 0.9 % Sodium Chloride 1,000 ML 1000 / 1000 @ 75 mls/hr IVC .[id number] [facility] Rx #:[id number] Zosyn 3.375 GM In 0.9 % Sodium 100 / 100 Chloride (Mini-Bag +) 100 ML @ 25 mls/hr IVPB Q12H [facility] Rx#: [id number] Output: Urine 400 / 400 600 / 600 Other: Stool Size Small Stool Consistency loose Stool Color Brown # Voids 1 # Bowel Movements 1 Weight 84.3 kg Patient Weight 09/05/18 23:59 Weight 84.3 kg - General Appearance General appearance: well-developed, well-nourished EENT: ATNC, hearing intact, vision intact Neck: supple Respiratory: clear Cardiology: no edema, normal S1, normal S2 Gastrointestinal: normoactive bowel sounds, no tenderness, no guarding Integumentary: no rash, warm and dry Neurologic: alert and oriented x3 Musculoskeletal: no deformities, no erythema Psychiatric: mood/affect appropriate, cooperative Results - Lab Results 09/05/18 03:09 09/05/18 03:09 Most recent lab results Calcium 8.0 mg/dL (8.6-10.3) L 09/05/18 03:09 Magnesium 1.5 mg/dL (1.6-2.6) L 09/05/18 03:09 Consult Discharge Plan - Plan Referrals: Abebe Chirinos MD [Primary Care Provider] -
[2018-09-05] MEDS ORDERED: Ipratropium/Albuterol Neb 3 ML IH PRN (16:03)
[2018-09-05 17:34] LABS: Protein/Creatinine Ratio,Urine 2.44 mg/mg (0.00-0.20); Sodium, Urine 26.4 mEq/L
[2018-09-05] MEDS: Aspirin Enteric Coated 81 MG Tablet PO SCH (20:13)
[2018-09-05] MEDS: Metoprolol XL (24 HR) Succ 25 MG TAB.ER.24H PO SCH (20:13)
[2018-09-06] MEDS: Piperacillin/Tazobactam 3.375 GM in 0.9 % Sodium Chloride Mini Bag 100 ML IVPB SCH ×2 (03:40→16:26)
[2018-09-06 05:04] LABS: Basophils # 0.1 K/mcL (0.0-0.2); Basophils % 0.3 %; Hematocrit 33.7 % (35.3-44.9); Lymphocytes % 5.4 %; Mean Corpuscular HGB Conc 32.6 g/dL (31.6-35.5); Mean Corpuscular Hemoglobin 25.9 pg (28.0-33.3); Mean Corpuscular Volume 79.3 fL (83.0-100.0); Monocytes # 0.9 K/mcL (0.0-1.3); Neutrophils # 16.1 K/mcL (1.6-8.9); Platelet Count 128 K/mcL (140-400); Red Blood Count 4.25 M/mcL (3.82-4.97); Red Cell Distribution Width 16.1 % (11.5-14.5); Segmented Neutrophils % 87.3 %
[2018-09-06 05:19] LABS: INR 3.1; Prothrombin Time 34.5 Seconds (9.4-12.1)
[2018-09-06 05:29] LABS: Calcium 8.8 mg/dL (8.6-10.3); Potassium 3.4 mEq/L (3.5-5.1)
[2018-09-06 05:31] LABS: Uric Acid 7.8 mg/dL (2.3-7.6)
[2018-09-06 05:43] LABS: Thyroid Stimulating Hormone 1.341 mcIU/mL (0.340-5.600)
[2018-09-06 06:02] LABS: Estimated Average Glucose 160 mg/dl; Hemoglobin A1C 7.2 %
[2018-09-06] MEDS: Aspirin Enteric Coated 81 MG Tablet PO SCH ×2 (08:56→20:05)
[2018-09-06] MEDS: Cholecalciferol (D-3) 1,000 UNIT TABLET PO SCH (08:56)
[2018-09-06] MEDS: Folic Acid 1 MG TABLET PO SCH (08:56)
[2018-09-06] MEDS ORDERED: Fluticasone Propionate Nasal 50 MCG/SPRAY BOTTLE NS SCH (09:00)
--- NOTE | 2018-09-06 10:22 | Internal Med Progress Note ---
<Mayi Grier P - Last Filed: 09/06/18 13:40> Hospitalist Progress Note - Encounter Date of Encounter: 09/06/18 Time of Encounter: 09:45 - Subjective Interval History: The patient is an 82-year-old woman with PMH of type 2 diabetes mellitus and hypertension/hyperlipidemia with stage III chronic kidney disease (GFR of 43 was noted on 07/30/18.She has had left upper quadrant abdominal pain for a few days, associated with mild cough but not wheezing. She fell out of bed about 2 days ago. She stated that the pain in the left upper quadrant was there before the fall.Her echocardiogram from May 2018 showed the ejection fraction of 45% together with mild concentric left ventricular hypertrophy and mild diastolic dysfunction . It also showed segmental left ventricular wall motion abnormality. CXR: Left base opacity may represent infection or atelectasis at LLL. CT abdomen & pelvis:No acute intra-abdominal abnormality to account for the patient's symptoms.,Moderate diverticulosis,Severe atherosclerosis. ,Status post cholecystectomy. Today during my visit the patient was lying comfortably on the bed, her vitals were stable. She complained about minimal pain abdomen in left upper quadrant and left lower chest, she was not in acute distress, answering question appropriately. Vital signs stable, she is not febrile for 48 hours. She stated that she is improving gradually since admission. We will closely monitor her today and we plan to send her home tomorrow if everything is stable - Exam Vitals: Temp Pulse Resp BP Pulse Ox 97.9 F 72 18 145/74 90 09/06/18 07:21 09/06/18 07:21 09/06/18 07:21 09/06/18 07:21 09/06/18 07:21 Exam: Gen: Alert, awake , Oriented to time,place and person Chest: Diminished BS b/l, No crackles, No rales, No wheezing Heart: S1S2+ RRR No Murmurs Abd: Soft, NT, BS + No organomegaly Ext: No edema, pulses are palpable, no tenderness Neuro: No focal neuro deficits Psych: Normal mood Skin: No rash - Assessment and Plan (1) Pneumonia Current Visit: Yes Status: Acute Assessment and Plan: The patient presented with left upper quadrant pain with cough and mild shortness of breath, she is a past smoker She has elevated white cell count 18.5 and neutrophil 16.1 , trending down since admission it might be due to infection and/or use of a steroid Xray Chest: Left base opacity may represent infection or atelectasis, possibly bacterial pneumonia ( Left Lower lobe ) She is on Zosynx day 2 and nebulization for SOB (2) Acute kidney injury superimposed on CKD Current Visit: Yes Status: Acute Assessment and Plan: The patient has elevated BUN creatinine for last few years, she is a patient of chronic disease(CKD 4) Today the creatinine level is 3.43 and yesterday it was 4.33, K+ 3.4, BUN 66 It might be precipitated by dehydration /or due to infection USG kidney : normal size We have put hold on nephrotoxic drugs and consulted nephrology. No active intervention from nephrology side, we will closely monitor BUN, creatinine and potassium tomorrow. (3) Diabetes type 2, controlled Current Visit: No Status: Chronic Assessment and Plan: She is a chronic patient of type 2 diabetes Recent glucose 126 Her A1c 6.7; done in March 2018 New A1c today 7.2 (4) Atrial fibrillation Current Visit: No Status: Acute Assessment and Plan: The patient is chronic patient of active fibrillation, she was taking warfarin at home Rate controlled with beta criss, We put hold warfarin because of high PT/INR ,Now PT/INR has been normalized We will restart from low dose of warfarin with consultation to pharmacist CHADvas score :5 (5) CHF (congestive heart failure) Current Visit: Yes Status: Acute Assessment and Plan: The patient has shortness of breath with minimal pedal edema Echocardiogram done before showed ejection fraction 45% with left ventricular concentric hypertrophy with mild diastolic dysfunction She is not on acute exacerbation of heart failure (6) Supratherapeutic INR Current Visit: Yes Status: Acute Assessment and Plan: She was on oral warfarin We have put it on hold because of high PT/INR The PT and INR coming down to 34.5 and 3.1 repectively today We consulted for starting from low dose of warfarin and adjust the dose as per PT/INR report tomorrow. (7) Hypertension Current Visit: No Status: Acute Assessment and Plan: She is a patient of chronic essential hypertension We have resumed home medication BB , but holded Lasix and ARB due to high creatinine Her recent blood pressure 145/74 - Time Spent with Patient Total time spent is greater than 50% in coordination of care (as documented) at patient's floor/unit and/or counseling patient: Internal Medicine: Result - Labs CBC & Chem 7: 09/06/18 03:28 09/06/18 03:28 Labs: Short CBC 09/06/18 Range/Units 03:28 WBC 18.5 H (4.3-11.1) K/mcL Hgb 11.0 L (11.5-15.4) g/dL Hct 33.7 L (35.3-44.9) % Plt Count 128 L (140-400) K/mcL Neutrophils # 16.1 H (1.6-8.9) K/mcL BMP 09/06/18 03:28 Sodium 130 L Potassium 3.4 L Chloride 93 L Carbon Dioxide 26 BUN 66 H Creatinine 3.43 H Glucose 126 H Calcium 8.8 - ABG Interpretation ABG results: PT/INR, D-dimer PT 34.5 Seconds (9.4-12.1) H 09/06/18 03:28 - Impressions Impressions Retroperitoneum Ultrasound 09/05/18 18:00 IMPRESSION: Unremarkable ultrasound of the kidneys and urinary bladder. 3.7 cm right ovarian simple cyst correlates with recent CT abdomen pelvis findings. Recommend follow-up pelvic US annually. (Reference: US BPRs based on Radiology 2010 Sep;256(3):943-54; CT/MR BPRs based on J Am Ines Radiol 2013;10:675-681.) D/ / Jeronimo Lyn / Jeronimo Lyn Interpreting Provider: Jeronimo Lyn - VTE Reasons for not Prescribing Prophylaxis: Treatment not Indicated - Low risk for VTE Deep Vein Thrombosis/Pulmonary Embolism Present on Admission: No Consult Discharge Plan - Plan Referrals: Abebe Chirinos MD [Primary Care Provider] - 09/13/18 10:00 am () Linda Galeano MD [Partnered Physician] - 10/17/18 3:30 pm <Jyoti Welsh - Last Filed: 09/06/18 13:56> Hospitalist Progress Note - Encounter Date of Encounter: 09/06/18 - Exam Vitals: Temp Pulse Resp BP Pulse Ox 97.9 F 75 18 158/83 92 09/06/18 12:20 09/06/18 12:20 09/06/18 12:20 09/06/18 12:20 09/06/18 12:20 - Assessment and Plan (1) Acute renal failure Current Visit: Yes Status: Acute (2) Pneumonia Current Visit: Yes Status: Acute (3) Type 2 diabetes mellitus Current Visit: Yes Status: Acute (4) Hyponatremia Current Visit: Yes Status: Acute - Time Spent with Patient Total time spent is greater than 50% in coordination of care (as documented) at patient's floor/unit and/or counseling patient: Internal Medicine: Result - Labs CBC & Chem 7: 09/06/18 03:28 09/06/18 03:28 Labs: Short CBC 09/06/18 Range/Units 03:28 WBC 18.5 H (4.3-11.1) K/mcL Hgb 11.0 L (11.5-15.4) g/dL Hct 33.7 L (35.3-44.9) % Plt Count 128 L (140-400) K/mcL Neutrophils # 16.1 H (1.6-8.9) K/mcL BMP 09/06/18 03:28 Sodium 130 L Potassium 3.4 L Chloride 93 L Carbon Dioxide 26 BUN 66 H Creatinine 3.43 H Glucose 126 H Calcium 8.8 - ABG Interpretation ABG results: PT/INR, D-dimer PT 34.5 Seconds (9.4-12.1) H 09/06/18 03:28 - Impressions Impressions Retroperitoneum Ultrasound 09/05/18 18:00 IMPRESSION: Unremarkable ultrasound of the kidneys and urinary bladder. 3.7 cm right ovarian simple cyst correlates with recent CT abdomen pelvis findings. Recommend follow-up pelvic US annually. (Reference: US BPRs based on Radiology 2010 Apr;256(3):943-54; CT/MR BPRs based on J Am Ines Radiol 2013;10:675-681.) D/ / Jeronimo Lyn / Jeronimo Lyn Interpreting Provider: Jeronimo Lyn - Attending Attestation I examined this patient and my medical decision-making was reviewed with the Resident Physician Dr. Grier. I agree with the documented findings, disposition and treatment plan as described except to the extent set forth below. Ms. Marques is a 82 y/o F with known past medical history of paroxysmal a fib, CK D stage III, hypertension, hyperlipidemia, systolic CHF, diabetes type II, patient who presented to ER with cough and shortness of breath. She also complained about left lower chest wall as was epigastric pain more like a pleurisy pain. Her chest x-ray showed left lower lobe pneumonia. Patient was admitted in the hospital and started her on empirical antibiotic levofloxacin symptoms started improving now. She denied any more chest pain. Gen: A, A, O x3 Chest: Diminished BS b/l, no crackles, no rales, mild wheezing Heart: S1S2+ RRR No murmurs ap 1. Acute LLL PNA- mostly bacterial cont empirical abx Zosyn cont Duoneb 2. J CARLOS with CKD-3 Due to dehydration improving cont IV hydration Nephro consulted 3. Chronic systolic CHF not in exacerbation held diuretics due to dehydration resumed all other home medications <Mayi Grier P - Last Filed: 09/06/18 13:40> (4) Atrial fibrillation Qualifiers: Atrial fibrillation type: chronic Qualified Code(s): I48.2 - Chronic atrial fibrillation (7) Hypertension Qualifiers: Hypertension type: essential hypertension Qualified Code(s): I10 - Essential (primary) hypertension <Jyoti Welsh - Last Filed: 09/06/18 13:56> (1) Acute renal failure Qualifiers: Acute renal failure type: unspecified Qualified Code(s): N17.9 - Acute kidney failure, unspecified (2) Pneumonia Qualifiers: Pneumonia type: due to unspecified organism Laterality: left Lung location: lower lobe of lung Qualified Code(s): J18.1 - Lobar pneumonia, unspecified organism (3) Type 2 diabetes mellitus Qualifiers: 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
[2018-09-06] MEDS: 0.9 % Sodium Chloride 1,000 ML IVC SCH (11:55)
[2018-09-06] MEDS: Estrogens, Conjugated CREAM 30 GM TUBE VG SCH (11:56)
--- NOTE | 2018-09-06 13:25 | Nephrology Progress Note ---
Addendum entered and electronically signed by James Grimm DO 09/07/18 18:59: I have personally performed a face to face evaluation on this patient. I have reviewed and agree with the care plan. History and Exam by me shows: Her J CARLOS and hyponatremia have demonstrated improvement, but she remains complex and high risk and has required a high degree of E/M and MDM. I do not recommend HD today. Continue to follow a renal protective strategy as outlined below. Thank you. Original Note: Date of Encounter: 09/06/18 Time of Encounter: 13:22 - Assessment and Plan (1) Acute kidney injury superimposed on CKD Current Visit: Yes Status: Acute Baseline GFR appears to be 35-40. Avoid nephrotoxins and renal dose all medications. Strict I&O. 1 Liter NS ordered by primary team. GFR today is 13, no signs of uremia or confusion. Electrolytes stable. 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 Urine output for the past 24 hours has been 800 mL. Retroperitoneal ultrasound: Unremarkable ultrasound of the kidneys and urinary bladder. 3.7 cm right ovarian simple cyst correlates with recent CT abdomen pelvis findings. Recommend follow-up pelvic US annually. (2) Hyponatremia Current Visit: Yes Status: Acute Sodium is 130, stable we will continue to monitor. Hyponatremia workup unremarkable. (3) Supratherapeutic INR Current Visit: Yes Status: Acute PT 34.5 and INR 3.1. Per primary. (4) Type 2 diabetes mellitus Current Visit: Yes Status: Acute Per primary. 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 Denies nausea, vomiting or diarrhea. Denies chest pain or shortness of breath. No acute events overnight. Objective - Vital Signs Vital signs: Vital Signs Temp Pulse Resp BP Pulse Ox 09/06/18 12:20 97.9 F 75 18 158/83 92 09/06/18 07:21 97.9 F 72 18 145/74 90 09/06/18 03:49 98.3 F 73 16 143/83 94 09/05/18 23:23 98.4 F 79 15 132/77 92 09/05/18 18:51 98.9 F 109 16 158/82 95 09/05/18 16:43 98.5 F 102 16 151/78 94 Intake and Output 09/05/18 09/06/18 09/06/18 23:59 07:59 15:59 Intake Total 100 / 100 100 / 100 Output Total 200 / 200 Balance -100 / -100 100 / 100 Intake: IV Fluids 100 / 100 100 / 100 Zosyn 3.375 GM In 0.9 % Sodium 100 / 100 100 / 100 Chloride (Mini-Bag +) 100 ML @ 25 mls/hr IVPB Q12H [facility] Rx#: [id number] Output: Urine 200 / 200 Other: Stool Size Small Stool Consistency loose Stool Color Brown # Voids 1 # Bowel Movements 1 Weight 85 kg Patient Weight 09/06/18 23:59 Weight 85 kg - General Appearance General appearance: Present: well-developed, well-nourished EENT: Present: ATNC, hearing intact, vision intact Neck: Present: supple Respiratory: Present: clear Cardiology: Present: no edema, normal S1, normal S2 Gastrointestinal: Present: normoactive bowel sounds, no tenderness, no guarding Integumentary: Present: no rash, warm and dry Neurologic: Present: alert and oriented x3 Musculoskeletal: Present: no deformities, no erythema Psychiatric: Present: mood/affect appropriate, cooperative - Lab 09/06/18 03:28 09/06/18 03:28 Most recent lab results Calcium 8.8 mg/dL (8.6-10.3) 09/06/18 03:28 Magnesium 1.5 mg/dL (1.6-2.6) L 09/05/18 03:09 Urine Creatinine 50 mg/dL 09/05/18 16:45 Urine Sodium 26.4 mEq/L 09/05/18 16:45 Urine Total Protein 122 mg/dL (1-14) H 09/05/18 16:45 - VTE Reasons for not Prescribing Prophylaxis: Treatment not Indicated - Low risk for VTE Deep Vein Thrombosis/Pulmonary Embolism Present on Admission: No Consult Discharge Plan - Plan Referrals: Abeeb Chirinos MD [Primary Care Provider] - 09/13/18 10:00 am () Linda Galeano MD [Partnered Physician] - 10/17/18 3:30 pm
[2018-09-06] MEDS ORDERED: *HR* Warfarin 2 MG TABLET PO ONE (18:00)
[2018-09-06] MEDS ORDERED: *HR* Heparin 5,000 UNIT/ML VIAL SQ SCH (18:00)
[2018-09-06] MEDS ORDERED: Warfarin perPT PO PRN (18:00)
[2018-09-06] MEDS: Metoprolol XL (24 HR) Succ 25 MG TAB.ER.24H PO SCH (20:05)
[2018-09-07] MEDS: 0.9 % Sodium Chloride 1,000 ML IVC SCH (03:20)
[2018-09-07] MEDS: Piperacillin/Tazobactam 3.375 GM in 0.9 % Sodium Chloride Mini Bag 100 ML IVPB SCH (04:48)
[2018-09-07 05:12] LABS: Basophils % 0.2 %; Hematocrit 35.1 % (35.3-44.9); Hemoglobin 11.4 g/dL (11.5-15.4); Immature Granulocytes % 4.2 % (0-4); Lymphocytes # 0.9 K/mcL (0.6-4.6); Lymphocytes % 5.7 %; Mean Corpuscular HGB Conc 32.5 g/dL (31.6-35.5); Mean Corpuscular Volume 80.1 fL (83.0-100.0); Mean Platelet Volume 11.7 fL (9.4-12.4); Monocytes % 6.3 %; Neutrophils # 13.7 K/mcL (1.6-8.9); Platelet Count 146 K/mcL (140-400); Red Blood Count 4.38 M/mcL (3.82-4.97); Red Cell Distribution Width 16.4 % (11.5-14.5); Segmented Neutrophils % 83.6 %
[2018-09-07 05:17] LABS: Prothrombin Time 33.7 Seconds (9.4-12.1)
[2018-09-07 05:29] LABS: Potassium 3.3 mEq/L (3.5-5.1)
[2018-09-07 07:21] VITALS: BP 156/79
--- NOTE | 2018-09-07 09:08 | Discharge Summary ---
- NOTES TO OUTPATIENT PROVIDER Notes to Outpatient Provider: Follow up with PCP in one week. Follow-up with nephrology in one week. Please continue holding Lasix for 3 more days, meanwhile if you notice any shortness of breath or worsening leg edema you can resume your Lasix. Orders not resulted at time of discharge: Pending orders 09/06/18 03:28 WILBERTO IgG REID rflx IFA AM 0400 [place] Lambda Qnt FLC w Ratio AM 0400 MPO/PR3 (ANCA) Antibodies Routine Protein Electrophoresis AM 0400 09/06/18 08:41 EKG [ECG 12 lead ECG] [ECG] Routine 09/08/18 04:00 PT/INR [Prothrombin Time INR] [COAG] AM 0400 09/09/18 04:00 PT/INR [Prothrombin Time INR] [COAG] AM 0400 Date of Encounter: 09/07/18 Time of Encounter: 09:06 - Discharge Diagnosis (1) Acute renal failure Priority: Primary Status: Acute Qualifiers: Acute renal failure type: unspecified Qualified Code(s): N17.9 - Acute kidney failure, unspecified (2) Pneumonia Priority: Primary Status: Acute Qualifiers: Pneumonia type: due to unspecified organism Laterality: left Lung location: lower lobe of lung Qualified Code(s): J18.1 - Lobar pneumonia, unspecified organism (3) Type 2 diabetes mellitus Priority: Secondary Status: Acute Qualifiers: 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 Marques is a 82 y/o F with known past medical history of paroxysmal a fib, CK D stage III, hypertension, hyperlipidemia, systolic CHF, diabetes type II, patient who presented to ER with cough and shortness of breath. She also complained about left lower chest wall as was epigastric pain more like a pleurisy pain. Her chest x-ray showed left lower lobe pneumonia. Patient was admitted in the hospital and started her on empirical antibiotic Zosyn and her symptoms started improving now. She denied any more chest pain. She also happened to have severe J CARLOS with CKD-3 due to dehydration and Sepsis with Pneumonia. Her Sepsis improved now. With IV hydration her Cr also improved slowly. Today her Cr @ 2.5 close to baseline. So will d/c her home in stable condition today. Talked to pt's son and explained to him about the hospital course. - Time Spent with Patient Total time spent providing and/or coordinating discharge services: - Discharge Medications Prescriptions: Amoxicillin/Clavulanate [Augmentin] 875 mg PO BIDWM #8 tablet Home Medications: Fluticasone Propionate Nasal [Flonase] 1 spray NS DAILY 08/27/15 [History] Pravastatin Sodium [Pravachol] 40 mg PO DAILY 08/27/15 [History] Warfarin [Coumadin] 2.5 mg PO MOTUWETHFRSA 09/17/15 [History] Folic Acid 0.4 mg PO DAILY 10/11/15 [History] Aspirin Enteric Coated [Aspirin EC] 81 mg PO DAILY 09/05/18 [History] Cholecalciferol (D-3) [Vitamin D] 1,000 unit PO DAILY 09/05/18 [History] Estrogens, Conjugated [Premarin Cream] 1 appl VG AD 09/05/18 [History] Losartan Potassium 100 mg PO DAILY 09/05/18 [History] Omeprazole [PriLOSEC] 40 mg PO DAILY 09/05/18 [History] Tramadol HCl [Ultram] 50 mg PO DAILY PRN 09/05/18 [History] Warfarin Sodium 5 mg PO ESTEBAN 09/05/18 [History] Amoxicillin/Clavulanate [Augmentin] 875 mg PO BIDWM #8 tablet 09/07/18 [Rx] Furosemide [Lasix] 40 mg PO DAILY #60 tab 09/07/18 [Rx] Metoprolol XL (24 HR) Succ [Toprol Xl] 25 mg PO HS tab.er.24h 09/07/18 [Rx] Allergies/Adverse Reactions: Allergy/AdvReac Type Severity Reaction Status Date / Time No Known Allergies Allergy Verified 08/20/17 07:11 Date of admission: 09/05/18 10:35 Primary care physician: Abebe Chirinos MD Consults: 09/04/18 17:32 Consult to Associate Director Of Development [CONS] Routine Reason for SW Consult: Interested life alert 09/05/18 07:55 Consult to Nurse Navigator [CONS] Routine Comment: PNEUMONIA 09/05/18 10:32 Consult to Nephrology [CONS] Routine Consulting Provider: Yahir Moreno/ZECHARIAH/ANNIE/FRANK Reason for Consult: CKD Call Completed: Yes 09/06/18 08:56 Consult to Physical Therapy [CONS] Routine Comment: Evaluate, develop and implement POC Reason for Consult: Frequent fall Does patient have active BEDREST order?: No Is patient medically & hemodynamically stable?: Yes Patient assessed for mobility or mobilized this visit?: No - Constitutional Vitals: Temp Pulse Resp BP Pulse Ox 97.4 F L 84 16 156/79 92 09/07/18 07:19 09/07/18 07:19 09/07/18 07:19 09/07/18 07:19 09/07/18 07:19 General appearance: Present: A&O X 3, no acute distress, answers questions appropriately Exam: Gen: Alert, awake, Oriented to time,place and person Chest: Diminished breath sounds B/L, No wheezing, No crackles, No rales Heart: S1S2+ RRR No murmurs Abd: Soft, NT, BS +, No organomegaly Ext: No edema, pulses are palpable, No calf tenderness Neuro : Benign findings Skin: No rash. - Patient Status Disposition: Home Health Service Condition: Good Overall status at discharge: patient is back to baseline - Discharge Instructions Follow Up With: Abebe Chirinos MD [Primary Care Provider] - 09/13/18 10:00 am () Linda Galeano MD [Partnered Physician] - 10/17/18 3:30 pm - Diet and Activity Activity: as per physical therapy, increase activity as tolerated Diet: low salt diet - VTE Reasons for not Prescribing Prophylaxis: Treatment not Indicated - Low risk for VTE Deep Vein Thrombosis/Pulmonary Embolism Present on Admission: No
--- NOTE | 2018-09-07 09:15 | Physician Discharge Referral ---
Home Health/Hosp Referral Info Transfer to: Home Health Provider in Charge Post Discharge: PCP - Diagnosis (1) Acute renal failure Status: Acute (2) Pneumonia Status: Acute (3) Type 2 diabetes mellitus Status: Acute (4) Hyponatremia Status: Acute - Respiratory Orders Smoking Cessation: Smoking cessation has been advised. For more information, call the [place] Tobacco Quit Line at 8-483-QDKU-NOW. - Services Needed Following services are medically necessary services: Nursing, Home Health Aide, Physical Therapy, Occupational Therapy - Transfer Medications Prescriptions: Amoxicillin/Clavulanate [Augmentin] 875 mg PO BIDWM #8 tablet Home Medications: Fluticasone Propionate Nasal [Flonase] 1 spray NS DAILY 08/27/15 [History] Pravastatin Sodium [Pravachol] 40 mg PO DAILY 08/27/15 [History] Warfarin [Coumadin] 2.5 mg PO MOTUWETHFRSA 09/17/15 [History] Folic Acid 0.4 mg PO DAILY 10/11/15 [History] Aspirin Enteric Coated [Aspirin EC] 81 mg PO DAILY 09/05/18 [History] Cholecalciferol (D-3) [Vitamin D] 1,000 unit PO DAILY 09/05/18 [History] Estrogens, Conjugated [Premarin Cream] 1 appl VG AD 09/05/18 [History] Losartan Potassium 100 mg PO DAILY 09/05/18 [History] Omeprazole [PriLOSEC] 40 mg PO DAILY 09/05/18 [History] Tramadol HCl [Ultram] 50 mg PO DAILY PRN 09/05/18 [History] Warfarin Sodium 5 mg PO ESTEBAN 09/05/18 [History] Amoxicillin/Clavulanate [Augmentin] 875 mg PO BIDWM #8 tablet 09/07/18 [Rx] Furosemide [Lasix] 40 mg PO DAILY #60 tab 09/07/18 [Rx] Metoprolol XL (24 HR) Succ [Toprol Xl] 25 mg PO HS tab.er.24h 09/07/18 [Rx] Allergies/Adverse Reactions: Allergy/AdvReac Type Severity Reaction Status Date / Time No Known Allergies Allergy Verified 08/20/17 07:11 Certification: Further, I certify that my clinical findings support that this patient is homebound (i.e. absences from home require considerable and taxing effort and are for medical reasons or gnosticism services or infrequently or short duration when for other reasons) because: Homebound Reason: Patient requires assistance of a person or device to safely leave home Attestation: My signature below is to certify that this patient is under my care and that I, or nurse practitioner, or a physician's medical billing assistant working with me, has a [id number] encounter with this patient.
[2018-09-07] MEDS: Folic Acid 1 MG TABLET PO SCH (10:15)
[2018-09-07] MEDS: Aspirin Enteric Coated 81 MG Tablet PO SCH (10:15)
[2018-09-07] MEDS: Cholecalciferol (D-3) 1,000 UNIT TABLET PO SCH (10:15)
--- NOTE | 2018-09-07 14:38 | Electrocardiograph Report ---
[address] [address] Test Date: 2018-09-04 Pat Name: Aleksandra Marques Department: [id number] Room: 3B12 Gender: F Treasury Assistant: : [id number] Requested By: Prudenico Ornelas Order Number: [id number] Reading MD: Adolfo Dominguez Measurements Intervals [place] Rate: 97 P: 79 NM: 172 QRS: 8 QRSD: 112 T: QT: 357 QTc: 454 Interpretive Statements Sinus rhythm Ventricular premature complex Borderline intraventricular conduction delay Low voltage, extremity leads Electronically Signed On 09-07-2018 14:37:05 EST by Adolfo Dominguez
== END 2018-09-07 11:10 | disposition home health service (06) | DRG 871 ==
LOC: EMEROOARM 11:04 → 3BNU 11:04 → SUATTDRO 15:48 → 3BNU 16:52
PROVIDERS: ADMIT Student in an Organized Health Care Education/Training Program; ATTEND Family Medicine

== ENCOUNTER 2021-07-23 09:53 | Inpatient (IN) ==
[2021-07-23 12:12] LABS: Basophils % 0.2 %; Hematocrit 34.9 % (35.3-44.9); Immature Granulocytes % 0.5 % (0-4); Lymphocytes # 1.4 K/mcL (0.6-4.6); Lymphocytes % 9.6 %; Mean Corpuscular HGB Conc 31.5 g/dL (31.6-35.5); Mean Corpuscular Hemoglobin 26.8 pg (28.0-33.3); Mean Corpuscular Volume 84.9 fL (83.0-100.0); Mean Platelet Volume 11.5 fL (9.4-12.4); Monocytes # 0.7 K/mcL (0.0-1.3); Monocytes % 5.2 %; Neutrophils # 11.9 K/mcL (1.6-8.9); Platelet Count 266 K/mcL (140-400); Red Blood Count 4.11 M/mcL (3.82-4.97); Red Cell Distribution Width 14.3 % (11.5-14.5); Segmented Neutrophils % 84.5 %; White Blood Count 14.1 K/mcL (4.3-11.1)
[2021-07-23 12:30] LABS: INR 3.5; Prothrombin Time 39.2 Seconds (9.4-12.1)
[2021-07-23 12:31] LABS: Calcium 9.2 mg/dL (8.6-10.3)
[2021-07-23 13:14] LABS: Bilirubin,Urine Negative (Negative); Blood,Urine Negative (Negative); Clarity,Urine Clear (Clear); Color,Urine Yellow (Yellow); Glucose,Urine (UA) Normal (Normal); Ketones,Urine Negative (Negative); Leukocyte Esterase,Urine Negative (Negative); Nitrite,Urine Negative (Negative); PH,Urine 5.5 pH Units (5.0-8.0); Protein,Urine Trace mg/dL (Neg-Trace); Specific Gravity,Urine 1.023 (1.010-1.025); Urobilinogen,Urine Normal (Normal)
[2021-07-23 13:51] LABS: Influenza A PCR Negative (Negative); Influenza B PCR Negative (Negative); Resp. Syncytial Virus PCR Negative (Negative)
[2021-07-23 13:53] LABS: SARS-CoV-2 by PCR (In House) Negative (Negative)
[2021-07-23] MEDS ORDERED: Calcium Chloride 1,000 MG in 0.9 % Sodium Chloride 100 ML IVPB ONE (13:53)
[2021-07-23] MEDS ORDERED: Naloxone 0.4 MG/ML INJ IVP PRN (14:34)
[2021-07-23] MEDS ORDERED: Ondansetron 4 MG/2 ML VIAL IVP PRN (14:34)
[2021-07-23] MEDS ORDERED: *HR* Metoprolol 5 MG/5 ML VIAL IVP PRN ×2 (14:41→15:08)
[2021-07-23] MEDS ORDERED: Morphine Sulfate 2 MG/ML SYRINGE IVP PRN (14:57)
[2021-07-23] MEDS ORDERED: Dextrose Gel 15 GM/37.5 ML TUBE PO PRN ×2 (15:09)
[2021-07-23] MEDS ORDERED: *HR* Dextrose 50 % in Water (Syg) 50 ML SYRINGE IVP PRN (15:09)
[2021-07-23] MEDS ORDERED: D5% in Water 1,000 ML IVC PRN (15:09)
[2021-07-23] MEDS: Insulin LISPRO 300 UNITS/3 ML VIAL SUBQ SCH (18:47)
[2021-07-24 04:49] LABS: Basophils # 0.1 K/mcL (0.0-0.2); Basophils % 0.4 %; Eosinophils % 0.1 %; Hematocrit 33.2 % (35.3-44.9); Hemoglobin 10.4 g/dL (11.5-15.4); Immature Granulocytes % 0.5 % (0-4); Lymphocytes # 2.5 K/mcL (0.6-4.6); Lymphocytes % 18.5 %; Mean Corpuscular HGB Conc 31.3 g/dL (31.6-35.5); Mean Corpuscular Hemoglobin 26.4 pg (28.0-33.3); Mean Corpuscular Volume 84.3 fL (83.0-100.0); Mean Platelet Volume 11.3 fL (9.4-12.4); Monocytes # 1.2 K/mcL (0.0-1.3); Monocytes % 9.3 %; Neutrophils # 9.5 K/mcL (1.6-8.9); Platelet Count 265 K/mcL (140-400); Red Blood Count 3.94 M/mcL (3.82-4.97); Red Cell Distribution Width 14.3 % (11.5-14.5); Segmented Neutrophils % 71.2 %; White Blood Count 13.4 K/mcL (4.3-11.1)
[2021-07-24 05:04] LABS: Potassium 3.9 mEq/L (3.5-5.1)
[2021-07-24 05:15] LABS: INR 3.6
[2021-07-24] MEDS ORDERED: *HR* Phytonadione 5 MG TABLET PO ONE (08:21)
[2021-07-24] MEDS: Insulin LISPRO 300 UNITS/3 ML VIAL SUBQ SCH ×3 (08:34→16:24)
[2021-07-24] MEDS ORDERED: Ringers Solution, Lactated 1,000 ML IVC SCH (10:00)
[2021-07-24 10:23] LABS: Sodium, Urine 38.8 mEq/L
[2021-07-24] MEDS ORDERED: Metoprolol XL (24 HR) Succ 25 MG TAB.ER.24H PO SCH ×2 (11:00→21:00)
[2021-07-24] MEDS ORDERED: Metoprolol XL (24 HR) Succ 25 MG TAB.ER.24H PO ONE (12:45)
[2021-07-24] MEDS ORDERED: Acetaminophen 325 MG TABLET PO PRN ×2 (16:14→16:21)
[2021-07-24] MEDS ORDERED: *HR* HYDROcodone/Acet 5/325 mg TABLET PO PRN (16:59)
[2021-07-24 18:18] LABS: INR 2.9; Prothrombin Time 31.6 Seconds (9.4-12.1)
[2021-07-24] MEDS: Metoprolol XL (24 HR) Succ 25 MG TAB.ER.24H PO SCH (22:01)
[2021-07-25 07:08] LABS: Basophils # 0.1 K/mcL (0.0-0.2); Basophils % 0.4 %; Eosinophils % 0.2 %; Hematocrit 28.9 % (35.3-44.9); Hemoglobin 9.4 g/dL (11.5-15.4); Immature Granulocytes % 0.5 % (0-4); Lymphocytes # 1.6 K/mcL (0.6-4.6); Lymphocytes % 13.1 %; Mean Corpuscular HGB Conc 32.5 g/dL (31.6-35.5); Mean Corpuscular Hemoglobin 27.3 pg (28.0-33.3); Mean Platelet Volume 10.8 fL (9.4-12.4); Monocytes # 0.9 K/mcL (0.0-1.3); Monocytes % 7.6 %; Neutrophils # 9.6 K/mcL (1.6-8.9); Platelet Count 272 K/mcL (140-400); Red Blood Count 3.44 M/mcL (3.82-4.97); Red Cell Distribution Width 14.2 % (11.5-14.5); Segmented Neutrophils % 78.2 %; White Blood Count 12.3 K/mcL (4.3-11.1)
[2021-07-25 07:14] LABS: INR 1.7; Prothrombin Time 19.3 Seconds (9.4-12.1)
[2021-07-25 07:26] LABS: Calcium 9.1 mg/dL (8.6-10.3); Potassium 3.9 mEq/L (3.5-5.1)
[2021-07-25] MEDS: Metoprolol XL (24 HR) Succ 25 MG TAB.ER.24H PO SCH ×2 (08:45→20:38)
[2021-07-25] MEDS: Insulin LISPRO 300 UNITS/3 ML VIAL SUBQ SCH ×3 (08:45→20:34)
[2021-07-25] MEDS ORDERED: *HR* Succinylcholine 200 MG/10 ML VIAL IVP ONE (09:41)
[2021-07-25] MEDS ORDERED: Lidocaine HCL 4 ML Topical Solution (Laryng-O-Jet Kit Sterile Pak) TP ONE (09:41)
[2021-07-25] MEDS ORDERED: Ondansetron 4 MG/2 ML VIAL ONE (09:41)
[2021-07-25] MEDS ORDERED: Lidocaine -MPF 2% 5 ML VIAL ONE ×2 (09:41→10:55)
[2021-07-25] MEDS ORDERED: *HR* FentaNYL (PF) 100 MCG/2 ML VIAL ONE (09:42)
[2021-07-25] MEDS ORDERED: *HR* Propofol 200 MG/20 ML VIAL IVP ONE (09:42)
[2021-07-25] MEDS ORDERED: *HR* HYDROmorphone PF 0.5 MG/0.5 ML SYRINGE IVP PRN (09:43)
[2021-07-25] MEDS ORDERED: *HR* OxyCODONE Immed Rel 5 MG TABLET PO PRN (09:43)
[2021-07-25] MEDS ORDERED: Ondansetron 4 MG/2 ML VIAL IVP PRN (09:43)
[2021-07-25] MEDS ORDERED: Albumin Human 5% 25.0 GM/500 ML IV.SOLN ONE (09:47)
[2021-07-25] MEDS ORDERED: Albumin Human 5% 12.5 GM/250 ML IV.SOLN IVC SCH (10:00)
[2021-07-25] MEDS ORDERED: Vancomycin 1,000 MG VIAL ONE (10:01)
[2021-07-25] MEDS ORDERED: Heparin 1,000 UNITS/500 mL 500 ML ONE (10:43)
[2021-07-25] MEDS ORDERED: CeFAZolin Syr 2,000MG/20 ML 2,000 MG/20 ML SYRINGE IVPB ONE (11:10)
[2021-07-25] MEDS ORDERED: *HR* Vasopressin 20 UNIT/ML VIAL ONE (11:15)
[2021-07-25] MEDS ORDERED: *HR* Rocuronium Bromide 50 MG/5 ML VIAL ONE ×2 (11:25→12:23)
[2021-07-25 12:22] LABS: ABG Base Excess 3 mEq/L (-2 to 3); ABG HCO3 26 mEq/L (21-27); ABG Oxygen Saturation 100 % (95-98); ABG PCO2 33 mmHg (35-45); ABG PH 7.51 pH Units (7.32-7.45); ABG PO2 349 mmHg (85-104); ABG TCO2 27 mEq/L (20-26); Blood Gas VT 550 cc
[2021-07-25] MEDS ORDERED: Sugammadex Sodium 200 MG/2 ML VIAL IV ONE (15:02)
[2021-07-25] MEDS ORDERED: Morphine Sulfate 2 MG/ML SYRINGE IVP PRN (15:51)
[2021-07-25] MEDS: CeFAZolin 2 GM/120 ML BAG IVPB SCH (20:48)
[2021-07-25] MEDS: Albumin Human 5% 12.5 GM/250 ML IV.SOLN IVC SCH (21:16)
[2021-07-26] MEDS: Albumin Human 5% 12.5 GM/250 ML IV.SOLN IVC SCH (01:16)
[2021-07-26] MEDS: CeFAZolin 2 GM/120 ML BAG IVPB SCH (03:30)
[2021-07-26 07:34] LABS: Calcium 8.6 mg/dL (8.6-10.3); Potassium 4.5 mEq/L (3.5-5.1)
[2021-07-26] MEDS ORDERED: Furosemide 40 MG TABLET PO SCH (09:00)
[2021-07-26] MEDS: Folic Acid 1 MG TABLET PO SCH (09:12)
[2021-07-26] MEDS: Cholecalciferol (D-3) 1,000 UNIT (25MCG) TABLET PO SCH (09:12)
[2021-07-26] MEDS: Metoprolol XL (24 HR) Succ 25 MG TAB.ER.24H PO SCH ×2 (09:13→19:59)
[2021-07-26] MEDS: PARoxetine 10 MG TABLET PO SCH (09:13)
[2021-07-26] MEDS: Insulin LISPRO 300 UNITS/3 ML VIAL SUBQ SCH ×3 (09:13→19:55)
[2021-07-26] MEDS: Aspirin Enteric Coated 81 MG Tablet PO SCH (09:13)
[2021-07-26 13:16] LABS: Basophils % 0.1 %; Hematocrit 22.5 % (35.3-44.9); Hemoglobin 6.8 g/dL (11.5-15.4); Immature Granulocytes % 0.6 % (0-4); Lymphocytes # 1.4 K/mcL (0.6-4.6); Lymphocytes % 11.2 %; Mean Corpuscular HGB Conc 30.2 g/dL (31.6-35.5); Mean Corpuscular Hemoglobin 26.9 pg (28.0-33.3); Mean Corpuscular Volume 88.9 fL (83.0-100.0); Mean Platelet Volume 10.5 fL (9.4-12.4); Monocytes # 0.9 K/mcL (0.0-1.3); Monocytes % 7.5 %; Neutrophils # 9.8 K/mcL (1.6-8.9); Platelet Count 297 K/mcL (140-400); Red Blood Count 2.53 M/mcL (3.82-4.97); Red Cell Distribution Width 14.3 % (11.5-14.5); Segmented Neutrophils % 80.6 %; White Blood Count 12.2 K/mcL (4.3-11.1)
[2021-07-26 13:25] LABS: INR 1.9; Prothrombin Time 21.1 Seconds (9.4-12.1)
[2021-07-26 13:29] LABS: Estimated Average Glucose 148 mg/dl; Hemoglobin A1C 6.8 %
[2021-07-26] MEDS ORDERED: 0.9 % Sodium Chloride 250 ML IVC SCH (14:30)
[2021-07-26 14:59] LABS: Hematocrit 22.2 % (35.3-44.9); Hemoglobin 6.7 g/dL (11.5-15.4)
[2021-07-26] MEDS ORDERED: 0.9 % Sodium Chloride 250 ML IVC ONE (15:33)
[2021-07-26] MEDS ORDERED: *HR* Phytonadione 5 MG TABLET PO ONE (15:37)
[2021-07-26] MEDS ORDERED: Warfarin perPT PO PRN (18:00)
[2021-07-26] MEDS ORDERED: *HR* Warfarin 4 MG TABLET PO ONE (18:00)
[2021-07-27 01:28] LABS: Basophils % 0.2 %; Eosinophils % 0.1 %; Hematocrit 24.2 % (35.3-44.9); Hematocrit 24.6 % (35.3-44.9); Hemoglobin 7.7 g/dL (11.5-15.4); Hemoglobin 7.8 g/dL (11.5-15.4); Immature Granulocytes % 1.3 % (0-4); Lymphocytes # 1.8 K/mcL (0.6-4.6); Lymphocytes % 14.5 %; Mean Corpuscular HGB Conc 32.2 g/dL (31.6-35.5); Mean Corpuscular Hemoglobin 28.1 pg (28.0-33.3); Mean Corpuscular Volume 87.1 fL (83.0-100.0); Mean Platelet Volume 10.5 fL (9.4-12.4); Monocytes # 1.2 K/mcL (0.0-1.3); Monocytes % 9.8 %; Neutrophils # 9.4 K/mcL (1.6-8.9); Nucleated Red Blood Cells 0.2 /100 WBC (0); Platelet Count 263 K/mcL (140-400); Red Blood Count 2.78 M/mcL (3.82-4.97); Segmented Neutrophils % 74.1 %; White Blood Count 12.7 K/mcL (4.3-11.1)
[2021-07-27 01:40] LABS: INR 1.6; Prothrombin Time 17.8 Seconds (9.4-12.1)
[2021-07-27 02:24] LABS: Calcium 8.4 mg/dL (8.6-10.3); Potassium 4.4 mEq/L (3.5-5.1)
[2021-07-27] MEDS ORDERED: Furosemide 20 MG/2 ML VIAL IVP ONE (02:33)
[2021-07-27 06:17] LABS: Hematocrit 27.5 % (35.3-44.9); Hemoglobin 8.5 g/dL (11.5-15.4)
[2021-07-27] MEDS: Metoprolol XL (24 HR) Succ 25 MG TAB.ER.24H PO SCH ×2 (09:48→21:14)
[2021-07-27] MEDS: Cholecalciferol (D-3) 1,000 UNIT (25MCG) TABLET PO SCH (09:48)
[2021-07-27] MEDS: Folic Acid 1 MG TABLET PO SCH (09:49)
[2021-07-27] MEDS: Insulin LISPRO 300 UNITS/3 ML VIAL SUBQ SCH ×3 (09:49→19:39)
[2021-07-27] MEDS: Aspirin Enteric Coated 81 MG Tablet PO SCH (09:49)
[2021-07-27] MEDS: PARoxetine 10 MG TABLET PO SCH (09:50)
[2021-07-27] MEDS: *HR* HYDROcodone/Acet 5/325 mg TABLET PO PRN (13:07)
[2021-07-28 05:00] LABS: Basophils # 0.1 K/mcL (0.0-0.2); Basophils % 0.4 %; Eosinophils # 0.1 K/mcL (0.0-0.6); Eosinophils % 0.5 %; Hematocrit 31.3 % (35.3-44.9); Lymphocytes # 1.7 K/mcL (0.6-4.6); Lymphocytes % 14.5 %; Mean Corpuscular HGB Conc 31.9 g/dL (31.6-35.5); Mean Corpuscular Hemoglobin 28.1 pg (28.0-33.3); Mean Corpuscular Volume 87.9 fL (83.0-100.0); Mean Platelet Volume 10.1 fL (9.4-12.4); Monocytes # 0.7 K/mcL (0.0-1.3); Monocytes % 6.3 %; Nucleated Red Blood Cells 0.3 /100 WBC (0); Platelet Count 270 K/mcL (140-400); Red Blood Count 3.56 M/mcL (3.82-4.97); Red Cell Distribution Width 14.3 % (11.5-14.5); Segmented Neutrophils % 76.3 %; White Blood Count 11.8 K/mcL (4.3-11.1)
[2021-07-28 05:06] LABS: INR 1.1; Prothrombin Time 12.5 Seconds (9.4-12.1)
[2021-07-28 05:11] LABS: Calcium 9.4 mg/dL (8.6-10.3); Potassium 4.7 mEq/L (3.5-5.1)
[2021-07-28] MEDS: Insulin LISPRO 300 UNITS/3 ML VIAL SUBQ SCH ×3 (07:53→16:39)
[2021-07-28] MEDS: Folic Acid 1 MG TABLET PO SCH (09:59)
[2021-07-28] MEDS: PARoxetine 10 MG TABLET PO SCH (09:59)
[2021-07-28] MEDS: Aspirin Enteric Coated 81 MG Tablet PO SCH (09:59)
[2021-07-28] MEDS: Cholecalciferol (D-3) 1,000 UNIT (25MCG) TABLET PO SCH (09:59)
[2021-07-28] MEDS: Metoprolol XL (24 HR) Succ 25 MG TAB.ER.24H PO SCH ×2 (10:00→21:12)
[2021-07-28] MEDS ORDERED: Warfarin perPT PO PRN ×2 (18:00)
[2021-07-28] MEDS ORDERED: *HR* Warfarin 4 MG TABLET PO ONE ×3 (18:00)
[2021-07-28] MEDS: *HR* HYDROcodone/Acet 5/325 mg TABLET PO PRN (18:36)
[2021-07-28 23:18] LABS: Bilirubin,Urine Negative (Negative); Blood,Urine Negative (Negative); Clarity,Urine Clear (Clear); Color,Urine Light-Yellow (Yellow); Glucose,Urine (UA) Normal (Normal); Ketones,Urine Negative (Negative); Leukocyte Esterase,Urine Negative (Negative); Nitrite,Urine Negative (Negative); Protein,Urine Trace mg/dL (Neg-Trace); Specific Gravity,Urine 1.016 (1.010-1.025); Urobilinogen,Urine Normal (Normal)
[2021-07-29 04:36] LABS: Basophils # 0.1 K/mcL (0.0-0.2); Basophils % 0.5 %; Eosinophils # 0.1 K/mcL (0.0-0.6); Eosinophils % 0.9 %; Hematocrit 26.6 % (35.3-44.9); Hemoglobin 8.1 g/dL (11.5-15.4); Immature Granulocytes % 3.1 % (0-4); Lymphocytes # 1.9 K/mcL (0.6-4.6); Lymphocytes % 15.3 %; Mean Corpuscular HGB Conc 30.5 g/dL (31.6-35.5); Mean Corpuscular Volume 88.7 fL (83.0-100.0); Mean Platelet Volume 9.8 fL (9.4-12.4); Monocytes # 0.9 K/mcL (0.0-1.3); Monocytes % 6.8 %; Neutrophils # 9.2 K/mcL (1.6-8.9); Nucleated Red Blood Cells 0.2 /100 WBC (0); Platelet Count 252 K/mcL (140-400); Red Cell Distribution Width 14.3 % (11.5-14.5); Segmented Neutrophils % 73.4 %; White Blood Count 12.5 K/mcL (4.3-11.1)
[2021-07-29 04:42] LABS: Calcium 8.8 mg/dL (8.6-10.3); Potassium 4.6 mEq/L (3.5-5.1)
[2021-07-29 04:50] LABS: INR 1.1; Prothrombin Time 12.8 Seconds (9.4-12.1)
[2021-07-29] MEDS: Insulin LISPRO 300 UNITS/3 ML VIAL SUBQ SCH ×3 (09:36→16:59)
[2021-07-29] MEDS: Aspirin Enteric Coated 81 MG Tablet PO SCH (09:42)
[2021-07-29] MEDS: Metoprolol XL (24 HR) Succ 25 MG TAB.ER.24H PO SCH ×2 (09:42→20:50)
[2021-07-29] MEDS: Cholecalciferol (D-3) 1,000 UNIT (25MCG) TABLET PO SCH (09:42)
[2021-07-29] MEDS: PARoxetine 10 MG TABLET PO SCH (09:42)
[2021-07-29] MEDS: Folic Acid 1 MG TABLET PO SCH (09:42)
[2021-07-29] MEDS: Furosemide 40 MG TABLET PO SCH (09:42)
[2021-07-29] MEDS ORDERED: *HR* Warfarin 4 MG TABLET PO ONE (18:00)
[2021-07-29] MEDS: Acetaminophen 325 MG TABLET PO PRN (21:15)
[2021-07-30 06:00] LABS: Basophils # 0.1 K/mcL (0.0-0.2); Basophils % 0.6 %; Eosinophils # 0.2 K/mcL (0.0-0.6); Eosinophils % 1.4 %; Hematocrit 31.1 % (35.3-44.9); Hemoglobin 9.4 g/dL (11.5-15.4); Immature Granulocytes % 4.8 % (0-4); Lymphocytes # 1.8 K/mcL (0.6-4.6); Lymphocytes % 16.2 %; Mean Corpuscular HGB Conc 30.2 g/dL (31.6-35.5); Mean Corpuscular Hemoglobin 26.6 pg (28.0-33.3); Mean Corpuscular Volume 88.1 fL (83.0-100.0); Monocytes # 0.6 K/mcL (0.0-1.3); Monocytes % 5.4 %; Neutrophils # 7.9 K/mcL (1.6-8.9); Nucleated Red Blood Cells 0.3 /100 WBC (0); Platelet Count 269 K/mcL (140-400); Red Blood Count 3.53 M/mcL (3.82-4.97); Red Cell Distribution Width 14.6 % (11.5-14.5); Segmented Neutrophils % 71.6 %
[2021-07-30 06:02] LABS: INR 1.3; Prothrombin Time 14.8 Seconds (9.4-12.1)
[2021-07-30 06:12] LABS: Calcium 9.4 mg/dL (8.6-10.3); Potassium 4.5 mEq/L (3.5-5.1)
[2021-07-30] MEDS: PARoxetine 10 MG TABLET PO SCH (08:53)
[2021-07-30] MEDS: Cholecalciferol (D-3) 1,000 UNIT (25MCG) TABLET PO SCH (08:53)
[2021-07-30] MEDS: Folic Acid 1 MG TABLET PO SCH (08:53)
[2021-07-30] MEDS: Aspirin Enteric Coated 81 MG Tablet PO SCH (08:53)
[2021-07-30] MEDS: Furosemide 40 MG TABLET PO SCH (08:54)
[2021-07-30] MEDS: Metoprolol XL (24 HR) Succ 25 MG TAB.ER.24H PO SCH ×2 (08:54→21:09)
[2021-07-30] MEDS: Insulin LISPRO 300 UNITS/3 ML VIAL SUBQ SCH ×3 (08:54→16:21)
[2021-07-30 10:43] LABS: Adenovirus Not Detected (Not Detect); Bordetella Pertussis Not Detected (Not Detect); Chlamydophila pneumoniae Not Detected (Not Detect); Coronavirus 229E Not Detected (Not Detect); Coronavirus HKU1 Not Detected (Not Detect); Coronavirus NL63 Not Detected (Not Detect); Coronavirus OC43 Not Detected (Not Detect); Human Metapneumovirus Not Detected (Not Detect); Human Rhinovirus/Enterovirus Not Detected (Not Detect); Influenza A Subtype 2009 H1 Not Detected (Not Detect); Influenza B Not Detected (Not Detect); Mycoplasma pneumoniae Not Detected (Not Detect); Parainfluenza Virus 1 Not Detected (Not Detect); Parainfluenza Virus 2 Not Detected (Not Detect); Parainfluenza Virus 3 Not Detected (Not Detect); Parainfluenza Virus 4 Not Detected (Not Detect); Respiratory Syncytial Virus Not Detected (Not Detect); SARS-CoV-2 Not Detected (Not Detect)
[2021-07-30] MEDS: Acetaminophen 325 MG TABLET PO PRN (12:05)
[2021-07-30] MEDS ORDERED: *HR* Warfarin 4 MG TABLET PO ONE (18:00)
[2021-07-30] MEDS: *HR* HYDROcodone/Acet 5/325 mg TABLET PO PRN (21:14)
[2021-07-31 05:58] LABS: Hematocrit 26.8 % (35.3-44.9); Hemoglobin 8.5 g/dL (11.5-15.4); Mean Corpuscular HGB Conc 31.7 g/dL (31.6-35.5); Mean Corpuscular Hemoglobin 28.1 pg (28.0-33.3); Mean Corpuscular Volume 88.4 fL (83.0-100.0); Mean Platelet Volume 9.7 fL (9.4-12.4); Platelet Count 269 K/mcL (140-400); Red Blood Count 3.03 M/mcL (3.82-4.97); Red Cell Distribution Width 14.8 % (11.5-14.5)
[2021-07-31 06:10] LABS: INR 1.6; Prothrombin Time 17.9 Seconds (9.4-12.1)
[2021-07-31 06:28] LABS: Calcium 9.3 mg/dL (8.6-10.3); Magnesium 1.8 mg/dL (1.6-2.6); Potassium 4.5 mEq/L (3.5-5.1)
[2021-07-31] MEDS: Metoprolol XL (24 HR) Succ 25 MG TAB.ER.24H PO SCH (08:46)
[2021-07-31] MEDS: Insulin LISPRO 300 UNITS/3 ML VIAL SUBQ SCH (08:46)
[2021-07-31] MEDS: Folic Acid 1 MG TABLET PO SCH (08:46)
[2021-07-31] MEDS: Aspirin Enteric Coated 81 MG Tablet PO SCH (08:46)
[2021-07-31] MEDS: Furosemide 40 MG TABLET PO SCH (08:46)
[2021-07-31] MEDS: Cholecalciferol (D-3) 1,000 UNIT (25MCG) TABLET PO SCH (08:46)
[2021-07-31] MEDS: *HR* HYDROcodone/Acet 5/325 mg TABLET PO PRN (08:48)
[2021-07-31 11:09] VITALS: BP 121/63; PULSE 65; TEMP 978; O2SAT 97
[2021-07-31 11:15] LABS: Influenza A PCR Negative (Negative); Influenza B PCR Negative (Negative); Resp. Syncytial Virus PCR Negative (Negative)
[2021-07-31 11:17] LABS: SARS-CoV-2 by PCR (In House) Negative (Negative)
[2021-07-31] MEDS ORDERED: *HR* Warfarin 4 MG TABLET PO ONE (18:00)
== END 2021-07-31 13:00 | DRG 481 ==
LOC: EMEROOARM 09:53 → 4WAOSI 09:53 → SUATTDRO 15:20 → 4WAOSI 07-25 13:30
PROVIDERS: ADMIT Internal Medicine; ATTEND Internal Medicine